=== PATIENT | female | born 1995 | race Caucasian/White ===

== ENCOUNTER → 2016-03-29 | Outpatient (REF) | payer OTHER ==
[~2016-03-29] MED LIST: FLUT11IN INH; NORT10CA2 PO; ORTHTAB6 PO; VITA100066 PO; XOPEAER INH; ZOFR4SOL PO
[2016-03-29 16:32] LABS: ALBUMIN 3.8 GM/DL (3.2-5.2); ALBUMIN/GLOBULIN RATIO 1.09 (1.00-1.93); ALKALINE PHOSPHATASE 37 U/L (45-117); ALT/SGPT 18 U/L (12-78); ANION GAP 11 MEQ/L (8-16); AST/SGOT 14 U/L (15-37); BILIRUBIN,TOTAL 0.2 MG/DL (0.2-1.0); BLOOD UREA NITROGEN 12 MG/DL (7-18); CALCIUM LEVEL 8.8 MG/DL (8.5-10.1); CARBON DIOXIDE LEVEL 25 MEQ/L (21-32); CHLORIDE LEVEL 102 MEQ/L (98-107); CREATININE FOR GFR 0.75 MG/DL (0.55-1.02); FERRITIN 6 NG/ML (8-252); FREE T4 0.88 NG/DL (0.78-1.33); GLUCOSE, FASTING 73 MG/DL (70-105); PERCENT SATURATION 29.8 % (13.2-37.4); POTASSIUM SERUM 4.3 MEQ/L (3.5-5.1); SODIUM LEVEL 138 MEQ/L (136-145); TOTAL IRON BINDING CAPACITY 510 UG/DL (250-450); TOTAL PROTEIN 7.3 GM/DL (6.4-8.2); VITAMIN B12 LEVEL 520 PG/ML (247-911)
[2016-03-29 17:24] LABS: BASO % 0.3 % (0.0-1.0); EOS # 0.1 K/mm3 (0.0-0.50); EOS % 0.9 % (0.0-3.0); LARGE UNSTAINED CELL # 0.2 K/mm3 (0.0-0.4); LARGE UNSTAINED CELL % 2.6 % (0.0-4.0); LYMPH # 1.8 K/mm3 (1.5-6.5); LYMPH % 30.3 % (24.0-44.0); MEAN CORPUSCULAR HGB CONC 34.3 g/dl (32.0-36.5); MEAN CORPUSCULAR VOLUME 90.2 fl (80.0-96.0); MONO # 0.4 K/mm3 (0.0-0.8); MONO % 6.7 % (0.0-5.0); NEUTROPHILS # 3.6 K/mm3 (1.8-7.7); NEUTROPHILS % 59.1 % (36.0-66.0); PLATELET COUNT, AUTOMATED 248 k/mm3 (150-450); RED CELL DISTRIBUTION WIDTH 12.4 % (11.5-14.5); WHITE BLOOD COUNT 6.1 K/mm3 (4.0-10.0)
== END ==
LOC: M LABDRAW1 15:44
DX: G25.89 Other specified extrapyramidal and movement disorders (principal); R53.83 Other fatigue

== ENCOUNTER → 2016-04-19 | Outpatient (REF) | payer OTHER ==
[2016-04-19 16:15] LABS: ALBUMIN 3.6 GM/DL (3.2-5.2); ALBUMIN/GLOBULIN RATIO 1.06 (1.00-1.93); ALKALINE PHOSPHATASE 42 U/L (45-117); ALT/SGPT 21 U/L (12-78); ANION GAP 7 MEQ/L (8-16); AST/SGOT 15 U/L (15-37); BILIRUBIN,TOTAL 0.2 MG/DL (0.2-1.0); BLOOD UREA NITROGEN 12 MG/DL (7-18); CALCIUM LEVEL 8.7 MG/DL (8.5-10.1); CARBON DIOXIDE LEVEL 28 MEQ/L (21-32); CHLORIDE LEVEL 105 MEQ/L (98-107); CREATININE FOR GFR 0.72 MG/DL (0.55-1.02); GLUCOSE, FASTING 73 MG/DL (70-105); POTASSIUM SERUM 4.1 MEQ/L (3.5-5.1); SODIUM LEVEL 140 MEQ/L (136-145)
== END ==
LOC: M LABDRAW1 15:38
PROVIDERS: ATTEND Psychiatry & Neurology Neurology
DX: G43.709 Chronic migraine without aura, not intractable, without status migrainosus (principal)

== ENCOUNTER → 2016-05-23 | Outpatient (REF) | payer OTHER ==
[2016-05-23 16:18] LABS: PERCENT SATURATION 26.9 % (13.2-37.4)
== END ==
LOC: M LABDRAW1 15:36
PROVIDERS: ATTEND Nurse Practitioner Family
DX: D64.9 Anemia, unspecified (principal)

== ENCOUNTER → 2016-08-15 | Outpatient (REF) | payer OTHER ==
[2016-08-15 13:13] LABS: PERCENT SATURATION 22.8 % (13.2-37.4)
== END ==
LOC: M LABDRAW1 12:21
PROVIDERS: ATTEND Nurse Practitioner Family
DX: G47.61 Periodic limb movement disorder (principal)

== ENCOUNTER → 2016-09-05 | Outpatient (REF) | payer OTHER ==
[2016-09-05 16:19] LABS: ALBUMIN 3.2 GM/DL (3.2-5.2); ALBUMIN/GLOBULIN RATIO 0.89 (1.00-1.93); ALKALINE PHOSPHATASE 31 U/L (45-117); ALT/SGPT 23 U/L (12-78); ANION GAP 5 MEQ/L (8-16); AST/SGOT 14 U/L (15-37); BILIRUBIN,TOTAL 0.2 MG/DL (0.2-1.0); BLOOD UREA NITROGEN 14 MG/DL (7-18); CALCIUM LEVEL 8.7 MG/DL (8.5-10.1); CARBON DIOXIDE LEVEL 31 MEQ/L (21-32); CHLORIDE LEVEL 104 MEQ/L (98-107); CREATININE FOR GFR 0.75 MG/DL (0.55-1.02); GLOMERULAR FILTRATION RATE > 60.0 (>60); GLUCOSE, FASTING 78 MG/DL (70-105); POTASSIUM SERUM 4.3 MEQ/L (3.5-5.1); SODIUM LEVEL 140 MEQ/L (136-145); TOTAL PROTEIN 6.8 GM/DL (6.4-8.2)
[2016-09-05 16:36] LABS: BASO % 0.2 % (0.0-1.0); EOS % 0.3 % (0.0-3.0); LARGE UNSTAINED CELL # 0.2 K/mm3 (0.0-0.4); LARGE UNSTAINED CELL % 1.6 % (0.0-4.0); LYMPH # 2.2 K/mm3 (1.5-6.5); MEAN CORPUSCULAR HEMOGLOBIN 32.4 pg (27.0-33.0); MEAN CORPUSCULAR HGB CONC 34.2 g/dl (32.0-36.5); MEAN CORPUSCULAR VOLUME 94.7 fl (80.0-96.0); MONO % 8.8 % (0.0-5.0); NEUTROPHILS # 8.1 K/mm3 (1.8-7.7); NEUTROPHILS % 70.1 % (36.0-66.0); PLATELET COUNT, AUTOMATED 227 k/mm3 (150-450); RED CELL DISTRIBUTION WIDTH 12.4 % (11.5-14.5); WHITE BLOOD COUNT 11.6 K/mm3 (4.0-10.0)
== END ==
LOC: M LABDRAW1 15:39
PROVIDERS: ATTEND Psychiatry & Neurology Neurology
DX: G43.909 Migraine, unspecified, not intractable, without status migrainosus (principal); M54.5 Low back pain; M54.2 Cervicalgia

== ENCOUNTER → 2016-12-26 | Outpatient (REF) | payer OTHER ==
[~2016-12-26] MED LIST changes: +LEVAINH INH; +ORTHTAB15 PO; -ORTHTAB6 PO; -XOPEAER INH
== END ==
LOC: M LAB REF 17:00
PROVIDERS: ATTEND Family Medicine
DX: Z11.3 Encounter for screening for infections with a predominantly sexual mode of transmission (principal)

== ENCOUNTER → 2017-01-25 | Outpatient (REF) | payer OTHER | LOC: M LABDRAW1 11:45 | PROVIDERS: ATTEND Internal Medicine Cardiovascular Disease | DX: I49.1 Atrial premature depolarization (principal) ==

== ENCOUNTER 2018-01-23 12:49 | Emergency (ER) | payer OTHER, MEDICAID, BC | END 2018-01-23 15:59 | disposition home or self-care (01) | LOC: M ED 12:49 | DX: O9A.211 Injury, poisoning and certain other consequences of external causes complicating pregnancy, first trimester (principal); T14.8XXA Other injury of unspecified body region, initial encounter; W10.8XXA Fall (on) (from) other stairs and steps, initial encounter; Y92.098 Other place in other non-institutional residence as the place of occurrence of the external cause; M54.9 Dorsalgia, unspecified; Z3A.08 8 weeks gestation of pregnancy; Z88.5 Allergy status to narcotic agent; Z79.899 Other long term (current) drug therapy | CPT/HCPCS: 76801 ==

== ENCOUNTER 2018-04-05 18:30 | Emergency (ER) | payer BC, OTHER, MEDICAID ==
[~2018-04-05] VITALS: Ht 144.8 cm; Wt 61.4 kg
[~2018-04-05 18:30] MED LIST changes: +ORTH1TAB9 PO; -ORTHTAB15 PO; +PRENCHW PO; +ZOLO50TA PO
[2018-04-05] MEDS ORDERED: ONDA4TAB5 (18:38)
--- NOTE | 2018-04-05 20:27 | REPVR ---
EXAM: US , Limited EXAM DATE/TIME: 04/05/2018 7:38 PM CLINICAL HISTORY: 22 years old, female; Injury or trauma; Fall; Initial encounter; Blunt trauma; Other: Lower back; Injury date: 04/05/18; Injury details: Patient fell on ice and hit back on running board; ; Additional info: Fall, cramping R/O placental injury, injury TECHNIQUE: Real-time ultrasound of the maternal uterus with image documentation. Exam focused on the clinical indication. COMPARISON: CT ABD PELVIS W/O FOL BY MELONIE 10/24/2014 6:37 PM FINDINGS: Note: Anatomical survey was neither requested nor performed on this examination. GESTATION: Gestation: Intrauterine gestation present. Heart rate: cardiac activity present. heart rate 144 beats per second. Presentation: Vertex presentation. Placenta: The placental edge is 2.9 cm from the internal cervical os. No placenta previa or placental abruption identified. MATERNAL: Cervix: Cervix length 4.0 cm. IMPRESSION: Limited ultrasound examination demonstrates a single live intrauterine gestation in vertex presentation. The heart rate is 144 beats per minute. The placenta is anterior without evidence of placenta previa or placenta abruption. Electronically signed by: Gus Huerta On 04/05/2018 20:27:35 PM
[2018-04-05 20:49] VITALS: BP 113/66
[2018-04-06] MEDS ORDERED: PRENCAP9 PO (17:21)
[2018-04-06] MEDS ORDERED: SERT50TA PO (17:21)
[2018-04-06] MEDS ORDERED: GUAI100S27 PO (18:23)
[2018-04-06] MEDS ORDERED: VENTAER INH (18:23)
== END 2018-04-05 21:13 | disposition home or self-care (01) ==
LOC: M ED 18:30
DX: O9A.212 Injury, poisoning and certain other consequences of external causes complicating pregnancy, second trimester (principal); S30.0XXA Contusion of lower back and pelvis, initial encounter; W00.9XXA Unspecified fall due to ice and snow, initial encounter; Y92.89 Other specified places as the place of occurrence of the external cause; Y93.89 Activity, other specified; O99.512 Diseases of the respiratory system complicating pregnancy, second trimester; J45.909 Unspecified asthma, uncomplicated; O99.89 Other specified diseases and conditions complicating pregnancy, childbirth and the puerperium; G43.A0 Cyclical vomiting, in migraine, not intractable; O99.342 Other mental disorders complicating pregnancy, second trimester; F41.9 Anxiety disorder, unspecified; Z3A.18 18 weeks gestation of pregnancy; Z88.5 Allergy status to narcotic agent; Z98.890 Other specified postprocedural states

== ENCOUNTER 2018-04-06 17:16 | Emergency (ER) | payer BC, OTHER, MEDICAID ==
[~2018-04-06] VITALS: Ht 144.8 cm; Wt 61.4 kg
[2018-04-06 17:16] VITALS: BP 137/74
[~2018-04-06 17:16] MED LIST changes: +ONDA4TAB5
[2018-04-06] MEDS ORDERED: PRENCAP9 PO (17:21)
[2018-04-06] MEDS ORDERED: SERT50TA PO (17:21)
[2018-04-06] MEDS ORDERED: guaiFENesin SYRUP 200 MG/10 ML UDC PO ONE (18:00)
[2018-04-06] MEDS ORDERED: GUAI100S27 PO (18:23)
[2018-04-06] MEDS ORDERED: VENTAER INH (18:23)
== END 2018-04-06 18:30 | disposition home or self-care (01) ==
LOC: M ED 17:16
DX: J06.9 Acute upper respiratory infection, unspecified (principal); J45.909 Unspecified asthma, uncomplicated; F41.9 Anxiety disorder, unspecified; F33.9 Major depressive disorder, recurrent, unspecified; Z79.899 Other long term (current) drug therapy; Z88.5 Allergy status to narcotic agent

== ENCOUNTER 2018-04-20 23:48 | Emergency (ER) | payer BC, OTHER, MEDICAID ==
[~2018-04-20] VITALS: Ht 144.8 cm; Wt 63.2 kg
[~2018-04-20 23:48] MED LIST changes: +GUAI100S27 PO; +PRENCAP9 PO; +SERT50TA PO; +VENTAER INH
[2018-04-21 01:00] VITALS: BP 112/69
[2018-04-21 01:07] LABS: BLOOD UREA NITROGEN 8 MG/DL (7-18); CALCIUM LEVEL 8.7 MG/DL (8.5-10.1); CARBON DIOXIDE LEVEL 24 MEQ/L (21-32); CHLORIDE LEVEL 104 MEQ/L (98-107); CREATININE FOR GFR 0.42 MG/DL (0.55-1.30); GLOMERULAR FILTRATION RATE > 60.0 (>60); GLUCOSE, FASTING 80 MG/DL (70-100); POTASSIUM SERUM 4.7 MEQ/L (3.5-5.1); SODIUM LEVEL 137 MEQ/L (136-145)
[2018-04-21 01:08] LABS: MAGNESIUM LEVEL 1.5 MG/DL (1.8-2.4)
[2018-04-21] MEDS ORDERED: MAGNESIUM OXIDE 400 MG TAB (MAG-OX) PO ONE (01:15)
--- NOTE | 2018-04-21 06:36 | ECGEPIP ---
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
== END 2018-04-21 01:25 | disposition home or self-care (01) ==
LOC: M ED 23:48
DX: O99.282 Endocrine, nutritional and metabolic diseases complicating pregnancy, second trimester (principal); O99.342 Other mental disorders complicating pregnancy, second trimester; O99.512 Diseases of the respiratory system complicating pregnancy, second trimester; Z3A.21 21 weeks gestation of pregnancy; Z79.899 Other long term (current) drug therapy; Z88.5 Allergy status to narcotic agent

== ENCOUNTER 2018-07-25 16:32 | Outpatient (CLI) | payer BC, OTHER, MEDICAID ==
[~2018-07-25] VITALS: Ht 146.1 cm; Wt 69.3 kg
[~2018-07-25 16:32] MED LIST changes: +GUAI100L6 PO; -GUAI100S27 PO; +SERT-141 PO; -SERT50TA PO
== END 2018-07-25 17:21 | disposition home or self-care (01) ==
LOC: M LDO 16:32
PROVIDERS: ATTEND Obstetrics & Gynecology
DX: O36.8130 Decreased fetal movements, third trimester, not applicable or unspecified (principal); Z3A.34 34 weeks gestation of pregnancy
CPT/HCPCS: 59025; G0378; G0463

== ENCOUNTER 2018-08-19 22:47 | Outpatient (CLI) | payer BC, MEDICAID ==
[~2018-08-19] VITALS: Ht 146.1 cm; Wt 70.9 kg
[2018-08-20 00:47] VITALS: BP 109/56
--- NOTE | 2018-08-20 02:19 | NUR ---
L&D Triage Note: S: 23yo G1 at 38wks presents with c/o contractions. Reports active movement. No vaginal bleeding or LOF PMHx: anxiety PSHx: spinal fusion OB: G1 Meds: PNV Allergy: hydrocodone Social Hx: no ETOH, drug or tobacco use during O: vss AF cat 1 tracing with irregular contractions on tocometer gen: well appearing cx: 1/50/-3, unchanged after 2 hrs A/P: 23yo G1 at 38wks with contractions,not active labor -Labor precautions and FKCs -f/u at OB appt Monday Janelle Lyman MD
== END 2018-08-20 02:15 | disposition home or self-care (01) ==
LOC: M LDO 22:47
PROVIDERS: ATTEND Obstetrics & Gynecology
DX: O47.1 False labor at or after 37 completed weeks of gestation (principal); Z3A.38 38 weeks gestation of pregnancy
CPT/HCPCS: 59025; G0378; G0463

== ENCOUNTER 2018-08-22 22:31 | Outpatient (CLI) | payer BC, MEDICAID ==
[2018-08-22 22:55] VITALS: BP 123/71
--- NOTE | 2018-08-23 07:01 | IPN ---
DATE: 08/23/2018 Beatrice is a 23-year-old 1, para 0 at 38-4/7 weeks gestation, estimated date of confinement (EDC) of 09/01/2018 based on last menstrual period and confirmed by first trimester ultrasound. She presents to labor and delivery today with report of irregular contractions since approximately 11:00 a.m. She denies vaginal bleeding or leakage of fluid. The fetus has been active. Her care was initiated at [facility] with a recent transfer of care to [facility]. Her first visit is scheduled this coming Monday. Her course has been unremarkable. OBSTETRIC HISTORY: Primigravida. OBSTETRIC LABS: A negative. Antibody screen negative. Varicella nonreactive. Rubella immune. Hep B surface antigen negative. Gonorrhea and chlamydia negative. Gestational diabetic screening normal at 95. Her Group B Streptococcus (GBS) is negative. PAST MEDICAL HISTORY: Anxiety. Depression. Exercise-induced asthma. Childhood varicella. She has a history of post concussion syndrome from a fall and follows with [facility] on a regular basis. SURGERIES: Lower lumbar spinal fusion. [place] tooth extraction. FAMILY HISTORY: Unknown as the patient is adopted. SOCIAL HISTORY: The patient is . Her is at bedside, supportive. She is a nonsmoker. Denies alcohol or drug use. No history of any sexually transmitted infections and denies history of abuse. ALLERGIES: 1. VICODIN. CURRENT MEDICATIONS: - vitamin - Zoloft 50 mg daily OBJECTIVE: Temperature 98.8, pulse 76, respirations 16, blood pressure is 123/71. The patient is alert and oriented times three. heart rate is 150 with moderate variability. Positive accelerations, no decelerations. Contractions are irregular, 4-7 minutes apart. Sterile vaginal exam: 1 cm dilated, 50% effaced, -2 station, very posterior, soft. No bloody show with the exam. ASSESSMENT: Intrauterine at 38-4/7 weeks. heart rate category 1, not in active labor. PLAN: Discharge the patient home. I did review signs and symptoms of active labor, kick counts and danger signs to report. I reviewed access to care. She is to keep her scheduled appointment on Monday. She would like to consider a social induction due to complaint of back pain related to term and a history of spinal fusion. The patient and her family have had their questions answered and agree with the plan of care.
== END 2018-08-23 00:01 | disposition home or self-care (01) ==
LOC: M LDO 22:31
PROVIDERS: ATTEND Advanced Practice Midwife
DX: O26.893 Other specified pregnancy related conditions, third trimester (principal); M54.9 Dorsalgia, unspecified; O47.1 False labor at or after 37 completed weeks of gestation; Z3A.38 38 weeks gestation of pregnancy
CPT/HCPCS: 59025; G0378; G0463

== ENCOUNTER → 2018-08-24 | Outpatient (REF) | payer OTHER, MEDICARE ==
[~2018-08-24] MED LIST changes: +COLA100C5 PO; +IBUP80TA PO; +PERCOCET PO
== END ==
LOC: M LABDRAW1 11:55
PROVIDERS: ATTEND Advanced Practice Midwife
DX: Z34.83 Encounter for supervision of other normal pregnancy, third trimester (principal)

== ENCOUNTER 2018-08-25 14:57 | Inpatient (IN) | payer BC, OTHER, MEDICAID ==
[2018-08-25] VITALS (13 sets, daily range): BP systolic 104–126; BP diastolic 56–73
[~2018-08-25] VITALS: Ht 146.1 cm; Wt 70.1 kg
[~2018-08-25 14:57] MED LIST changes: -COLA100C5 PO; -IBUP80TA PO; -PERCOCET PO
[2018-08-25] MEDS ORDERED: miSOPROStol 50 MCG 1/2 TAB (S0191) SL SCH (15:30)
[2018-08-25 16:22] LABS: HEMATOCRIT 38.6 % (36.0-47.0); HEMOGLOBIN 13.2 g/dl (12.0-15.5); MEAN CORPUSCULAR HEMOGLOBIN 30.9 pg (27.0-33.0); MEAN CORPUSCULAR HGB CONC 34.2 g/dl (32.0-36.5); MEAN CORPUSCULAR VOLUME 90.4 fl (80.0-96.0); PLATELET COUNT, AUTOMATED 208 10^3/uL (150-450); RED BLOOD COUNT 4.27 10^6/uL (4.00-5.40); WHITE BLOOD COUNT 10.7 10^3/uL (4.0-10.0)
--- NOTE | 2018-08-25 17:22 | HPE ---
DATE OF ADMISSION: 08/25/2018 A 23-year-old G1 female at 39-0/7 weeks gestation by last menstrual period (LMP) consistent with eight week ultrasound, estimated delivery date (PAGE) 09/01/2018, presents for labor induction. The reason for induction is worsening back pain from a preexisting lower back problem. She has occasional contractions. Denies vaginal bleeding. COURSE: Patient's early care was with [facility] (OB). She transferred to [facility] at 38 weeks gestation. She has had no complications other than worsening back pain. MEDICAL HISTORY: 1. Anxiety/depression. 2. Exercised induced asthma. 3. Chronic back pain following a trauma. SURGICAL HISTORY: 1. Lower lumbar spinal fusion 2016. 2. [place] teeth removal 2014. ALLERGIES: HYDROCODONE. SOCIAL HISTORY: The patient is . She denies cigarettes, alcohol or drug use. She lives in [place]. FAMILY HISTORY: Noncontributory. PHYSICAL EXAMINATION: Blood pressure 116/70. She is in no apparent distress. HEAD AND NECK EXAM: Normal. LUNGS: Clear. HEART: Regular rate and rhythm. ABDOMEN: Nontender. Gravid. heart tones category 1. Contractions regular, sparse. EXTREMITIES: Nontender. CERVIX: 1 cm, 50%, -2 per exam on 08/24/2018. LABORATORY DATA: Blood type A positive, rubella immune, rapid plasma reagin (RPR) nonreactive, hepatitis B and C negative, group B Streptococcus (GBS) negative on 08/07/2018. ASSESSMENT: A 23-year-old G1 at 39-0/7 weeks gestation presents for labor induction. PLAN: Patient is admitted on 08/25/2018. Risks of induction were discussed.
[2018-08-25] MEDS ORDERED: OXYTOCIN 30 UNITS IN 0.9% NaCl 500ML IV BAG (J2590) As Ordered ONE (19:56)
[2018-08-25] MEDS ORDERED: OXYTOCIN DRIP 30 UNITS in APPROPRIATE DILUENT 1 EA IV SCH (20:00)
[2018-08-25] MEDS: LR 1,000 ML IV SCH (20:06)
[2018-08-26] VITALS (61 sets, daily range): BP systolic 96–151; BP diastolic 52–92
[2018-08-26] MEDS: LR 1,000 ML IV SCH ×2 (02:30→08:59)
[2018-08-26] MEDS ORDERED: FENTANYL 2MCG/ML ROPIVACAINE 0.2% IN 0.9% NACL 100ML IVBAG As Ordered ONE (03:49)
[2018-08-26] MEDS ORDERED: diphenhydrAMINE INJ 50MG/ML VIAL (J1200) IV PRN ×2 (04:20→20:35)
[2018-08-26] MEDS ORDERED: REFRIGERATOR IV KEYS XX PRN (04:20)
[2018-08-26] MEDS ORDERED: EPIDURAL COMMENT XX SCH (04:20)
[2018-08-26] MEDS ORDERED: NALOXONE INJ 0.4 MG/1 ML VIAL (J2310) IV PRN ×3 (04:20→20:35)
[2018-08-26] MEDS ORDERED: LACTATED RINGER'S 1000 ML IV PRN (04:20)
[2018-08-26] MEDS ORDERED: ePHEDrine SULFATE 25 MG/5 ML(5MG/ML) SYRINGE IV PRN (04:20)
[2018-08-26] MEDS ORDERED: EPIDURAL/PCA KEYS XX PRN (04:20)
[2018-08-26] MEDS ORDERED: FENTANYL/ROPIVACAINE/NACL BAG 100 ML EPIDURAL SCH (04:20)
[2018-08-26] MEDS ORDERED: ONDANSETRON 4MG/2ML VIAL (J2405) As Ordered ONE ×2 (05:08→20:30)
[2018-08-26] MEDS: ONDANSETRON 4MG/2ML VIAL (J2405) IV PRN ×2 (05:11→12:18)
[2018-08-26] MEDS ORDERED: ceFAZolin 2 GM/D5W 50 ML IV BAG (J0690 PER 500MG) As Ordered ONE (19:47)
[2018-08-26] MEDS ORDERED: BICITRA 30ML SOLN UDC As Ordered ONE (19:47)
[2018-08-26] MEDS ORDERED: MAG SULF 1GM/100ML (MAG RUN) 1 GM in APPROPRIATE DILUENT 1 EA IV ONE (20:00)
[2018-08-26] MEDS ORDERED: OXYTOCIN INJ 10 UNITS/ML VIAL (J2590) As Ordered ONE ×2 (20:12→20:24)
[2018-08-26] MEDS ORDERED: LIDOCAINE 2% W/EPIN INJ 20ML **PRES FREE As Ordered ONE (20:12)
[2018-08-26] MEDS ORDERED: MORPHINE PRES-FREE INJ 10 MG/10 ML VIAL (J2274) As Ordered ONE (20:27)
[2018-08-26] MEDS ORDERED: NALBUPHINE HCL 10 MG/ML AMP (J2300) IV PRN ×2 (20:35→21:00)
[2018-08-26] MEDS ORDERED: METOCLOPRAMIDE INJ 10MG/2ML VIAL (J2765) IV PRN (20:35)
[2018-08-26] MEDS ORDERED: ONDANSETRON 4MG/2ML VIAL (J2405) IV PRN ×3 (20:35→21:30)
[2018-08-26] MEDS ORDERED: METOCLOPRAMIDE INJ 10MG/2ML VIAL (J2765) As Ordered ONE (20:36)
[2018-08-26] MEDS ORDERED: MEPERIDINE 50 MG/ML 1ML VIAL (J2175) As Ordered ONE (20:41)
[2018-08-26] MEDS ORDERED: PERCOCET 5MG/325MG TAB PO PRN ×3 (21:00→21:30)
[2018-08-26] MEDS ORDERED: fentaNYL 100 MCG/2 ML INJECTION (J3010) IV PRN (21:00)
[2018-08-26] MEDS ORDERED: KETOROLAC 30 MG/ML VIAL (J1885) IV PRN (21:00)
[2018-08-26] MEDS ORDERED: MEPERIDINE INJ 25 MG/ML VIAL (J2175) IV PRN (21:00)
[2018-08-26] MEDS ORDERED: LR 1,000 ML IV SCH (21:00)
[2018-08-26] MEDS ORDERED: OXYTOCIN DRIP 30 UNITS in APPROPRIATE DILUENT 1 EA IV SCH (21:30)
[2018-08-26] MEDS ORDERED: MEASLES,MUMPS,RUBELLA VACCINE INJ (MMR-II) (90707) SC SCH (21:30)
[2018-08-26] MEDS ORDERED: miSOPROStol 200 MCG TAB (S0191) PR ONE (21:30)
[2018-08-26] MEDS ORDERED: DOCUSATE SODIUM 100 MG CAP PO PRN (21:30)
[2018-08-26] MEDS ORDERED: RHOGAM 300 MCG (1500 IU) INJ (J2790) IM SCH (21:30)
[2018-08-26] MEDS ORDERED: OXYTOCIN 30 UNITS IN 0.9% NaCl 500ML IV BAG (J2590) As Ordered ONE (22:03)
[2018-08-26] MEDS: KETOROLAC 30 MG/ML VIAL (J1885) IV SCH (23:37)
[2018-08-27] VITALS (8 sets, daily range): BP systolic 111–127; BP diastolic 52–68
[2018-08-27] MEDS: KETOROLAC 30 MG/ML VIAL (J1885) IV SCH ×3 (05:21→17:05)
[2018-08-27] MEDS: LR 1,000 ML IV SCH (05:30)
[2018-08-27 06:23] LABS: HEMATOCRIT 30.2 % (36.0-47.0); MEAN CORPUSCULAR HEMOGLOBIN 30.4 pg (27.0-33.0); MEAN CORPUSCULAR HGB CONC 33.8 g/dl (32.0-36.5); MEAN CORPUSCULAR VOLUME 90.1 fl (80.0-96.0); PLATELET COUNT, AUTOMATED 164 10^3/uL (150-450); RED BLOOD COUNT 3.35 10^6/uL (4.00-5.40); WHITE BLOOD COUNT 18.6 10^3/uL (4.0-10.0)
[2018-08-27 06:32] LABS: HEMOGLOBIN 10.2 g/dl (12.0-15.5)
[2018-08-27] MEDS: PRENATAL VITAMINS CHEWABLE TABLET PO SCH (08:18)
[2018-08-27] MEDS: SERTRALINE HCL 25 MG TABLET PO SCH (11:27)
--- NOTE | 2018-08-27 12:49 | RO ---
DATE OF PROCEDURE: 08/26/2018 PREOPERATIVE DIAGNOSIS: 39 weeks, arrest of dilation. POSTOPERATIVE DIAGNOSIS: 39 weeks, arrest of dilation. PROCEDURE: Primary low transverse section. SURGEON: Federico Richter MD CIGAR BINDER: Jonathan Ayoub MD ANESTHESIA: Epidural. ESTIMATED BLOOD LOSS: 800 mL. URINE OUTPUT: 150 mL. IV FLUIDS: 900 mL of Lactated Ringer's. FINDINGS: 3320 gram 7 pound 5 ounce male . scores 8 and 8, occiput posterior position with asynclitism present. Normal uterus, fallopian tubes and ovaries. OPERATIVE SUMMARY: Patient taken to the operating room where epidural anesthesia was adequate. She was prepped and draped in a sterile fashion, placed in the supine position. A Bolton catheter was already in place. A Pfannenstiel skin incision was made with a scalpel and carried through to the fascia, the fascia was nicked and extended. Peritoneal cavity was entered. A bladder flap was created. A curvilinear incision was made in the lower uterine segment until clear fluid was noted. This was extended manually. The was delivered in the vertex position without difficulty. The cord was doubly clamped and cut. The was handed off to the awaiting nurses. Placenta was expressed. The uterus was exteriorized and cleared of all clots and debris. The uterine incision was closed with #0 Vicryl in a running locked fashion. A second imbricating layer of #0 Vicryl was placed. The uterus was placed back in the abdominal cavity. The peritoneum was closed with #2-0 Vicryl in a running fashion. The fascia was closed with #0 Vicryl. The deep layer was irrigated and closed with #2-0 chromic. Skin was close with #4-0 Monocryl subcuticular sutures. Sponge, instrument and needle counts were correct. Jonathan Ayoub MD assisted throughout the procedure. He was integral to the procedure. He helped create all layers of the incision was the abdomen and uterus. He helped with expulsion of the fetus and closure of all layers.
[2018-08-27] MEDS: ACETAMINOPHEN 500 MG TAB PO PRN (20:27)
[2018-08-28] MEDS: IBUPROFEN 800 MG TAB PO SCH ×2 (01:24→09:16)
[2018-08-28 02:59] VITALS: BP 151/81
[2018-08-28] MEDS: ACETAMINOPHEN 500 MG TAB PO PRN ×2 (04:58→10:02)
[2018-08-28 05:30] VITALS: BP 114/62
[2018-08-28] MEDS: PRENATAL VITAMINS CHEWABLE TABLET PO SCH (09:00)
[2018-08-28] MEDS: SERTRALINE HCL 25 MG TABLET PO SCH (09:00)
[2018-08-28 10:00] VITALS: BP 122/58
--- NOTE | 2018-08-28 12:16 | NUR ---
Discharge Summary Date of admission: 08/25/2018 Date of discharge: 08/28/2018 Admitting diagnosis: 39 completed weeks gestation, planned elective induction of labor Discharge diagnosis: Status post primary low transverse section. Single, liveborn delivered via . Indication: arrest of dilation. Discharge Summary: 23 year-old G1 now P1. She was admitted on 08/25/18 at 39+0 weeks EGA for a planned elective IOL. Her labor course was complicated by arrest of dilation. This prompted an unscheduled delivery under regional anesthesia on 08/26/18. The delivery was uncomplicated. The patient's postoperative courses was uncomplicated as well. By postoperative day #2, the patient was meeting all discharge criteria. Her pain was well controlled on oral pain meds. She was ambulating without assistance, voiding spontaneously, tolerating a regular diet, and her lochia/bleeding was minimal. Physical exam on date of discharge: Vitals: normotensive, normal HR, afebrile Heart: regular rate and rhythm with no murmurs, gallops, rubs. Lungs: clear to auscultation bilaterally, no wheezes, crackles, rales, ronchi Abd: soft, non-distended, appropriately tender. Normoactive bowel sounds. Incision: clean, dry, intact without surrounding erythema or induration. Ext: non-edematous, non-tender, negative Lorenzo's sign bilaterally Assessment/Plan: 23 year-old G1 now P1 status post primary low transverse delivery on 08/26/18 now postoperative day #2. Hemodynamically stable, afebrile, with good pain control. Meeting all discharge criteria. -Routine infectious, fever, pain, and bleeding precautions reviewed -Surgical wound/incisional care / precautions reviewed. -Discharge medications: Percocet, Motrin, Colace. -Outpatient follow up in 1-2 weeks for a routine incision / postoperative check. Dr. Konstantin Ross, DO, FACOG
[2018-08-28] MEDS ORDERED: COLA100C5 PO (12:19)
[2018-08-28] MEDS ORDERED: IBUP80TA PO (12:19)
[2018-08-28] MEDS ORDERED: PERCOCET PO (12:19)
== END 2018-08-28 14:40 | disposition home or self-care (01) | DRG 540 ==
LOC: M LDI 14:57 → M OBS 08-26 23:09
PROVIDERS: ADMIT Specialist; ATTEND Specialist
PROC: 3E0P7GC Introduction of Other Therapeutic Substance into Female Reproductive, Via Natural or Artificial Opening (ICD-10-PCS; 2018-08-25)
PROC: 10D00Z1 Extraction of Products of Conception, Low, Open Approach (ICD-10-PCS; principal; 2018-08-26 20:00)
DX: O26.893 Other specified pregnancy related conditions, third trimester (principal); M54.5 Low back pain; Z3A.39 39 weeks gestation of pregnancy; Z98.1 Arthrodesis status; O62.0 Primary inadequate contractions; O64.0XX0 Obstructed labor due to incomplete rotation of fetal head, not applicable or unspecified; Z37.0 Single live birth

== ENCOUNTER 2018-08-29 17:42 | Emergency (ER) | payer BC, OTHER, MEDICAID ==
[~2018-08-29 17:42] MED LIST changes: +COLA100C5 PO; +IBUP80TA PO; +PERCOCET PO
[2018-08-29] MEDS ORDERED: NS 1,000 ML IV ONE (18:30)
[2018-08-29] MEDS ORDERED: PROMETHAZINE INJ 25 MG/ML VIAL (J2550) IV ONE (18:45)
[2018-08-29] MEDS ORDERED: diphenhydrAMINE INJ 50MG/ML VIAL (J1200) IV ONE (18:45)
[2018-08-29] MEDS ORDERED: ACETAMINOPHEN 500 MG TAB PO ONE (18:45)
[2018-08-29 19:06] LABS: BASO % 0.3 % (0.0-1.0); EOS # 0.2 10^3/uL (0.0-0.50); EOS % 1.7 % (0.0-3.0); HEMATOCRIT 32.2 % (36.0-47.0); HEMOGLOBIN 10.8 g/dl (12.0-15.5); LYMPH # 2.7 10^3/uL (1.5-6.5); LYMPH % 19.8 % (24.0-44.0); MEAN CORPUSCULAR HEMOGLOBIN 30.8 pg (27.0-33.0); MEAN CORPUSCULAR HGB CONC 33.5 g/dl (32.0-36.5); MEAN CORPUSCULAR VOLUME 91.7 fl (80.0-96.0); MONO # 0.8 10^3/uL (0.0-0.8); MONO % 5.9 % (0.0-5.0); NEUTROPHILS # 9.7 10^3/uL (1.8-7.7); NEUTROPHILS % 70.5 % (36.0-66.0); PLATELET COUNT, AUTOMATED 267 10^3/uL (150-450); RED BLOOD COUNT 3.51 10^6/uL (4.00-5.40); WHITE BLOOD COUNT 13.8 10^3/uL (4.0-10.0)
--- NOTE | 2018-08-29 19:24 | REPVR ---
EXAM: CT Head Without Contrast EXAM DATE/TIME: 08/29/2018 6:40 PM CLINICAL HISTORY: 23 years old, female; Pain; Headache not specified TECHNIQUE: Imaging protocol: Axial computed tomography images of the head without contrast. Radiation optimization: All CT scans at this facility use at least one of these dose optimization techniques: automated exposure control; mA and/or kV adjustment per patient size (includes targeted exams where dose is matched to clinical indication); or iterative reconstruction. COMPARISON: CT Head without contrast 01/11/2013 11:32 PM FINDINGS: Brain: There is no evidence of intracranial bleed. Ventricles: Normal. No ventriculomegaly. Bones/joints: Unremarkable. No acute fracture. Sinuses: Clear paranasal sinuses. Mastoid air cells: Clear mastoid air cells. Soft tissues: Unremarkable. IMPRESSION: Normal appearing CT scan of the brain. Electronically signed by: Mauricio Negron On 08/29/2018 19:24:48 PM
[2018-08-29 19:31] LABS: ALBUMIN 2.4 GM/DL (3.2-5.2); ALT/SGPT 27 U/L (12-78); BILIRUBIN,DIRECT < 0.1 MG/DL (0.0-0.2); BILIRUBIN,TOTAL 0.2 MG/DL (0.2-1.0); BLOOD UREA NITROGEN 7 MG/DL (7-18); CARBON DIOXIDE LEVEL 26 MEQ/L (21-32); CHLORIDE LEVEL 107 MEQ/L (98-107); CREATININE FOR GFR 0.61 MG/DL (0.55-1.30); GLOMERULAR FILTRATION RATE > 60.0 (>60); GLUCOSE, FASTING 85 MG/DL (70-100); LIPASE 188 U/L (73-393); POTASSIUM SERUM 3.5 MEQ/L (3.5-5.1); SODIUM LEVEL 143 MEQ/L (136-145); TOTAL PROTEIN 6.5 GM/DL (6.4-8.2)
[2018-08-29 20:45] LABS: APPEARANCE, URINE HAZY (CLEAR); BACTERIA, URINE AUTO 1+ (NEGATIVE); BILIRUBIN, URINE AUTO NEGATIVE (NEGATIVE); BLOOD, URINE BLOOD 3+ (NEGATIVE); COLOR, URINE STRAW (YELLOW); GLUCOSE, URINE (UA) AUTO NEGATIVE (NEGATIVE); KETONE, URINE AUTO NEGATIVE (NEGATIVE); LEUKOCYTE ESTERASE, URINE AUTO 2+ (NEGATIVE); NITRITE, URINE AUTO NEGATIVE (NEGATIVE); PROTEIN, URINE AUTO NEGATIVE (NEGATIVE); RBC, URINE AUTO 14 /HPF (0-3); RENAL EPITHELIAL CELLS 1 /HPF; SPECIFIC GRAVITY URINE AUTO 1.003 (1.002-1.035); SQUAMOUS EPITHELIAL CELL UR AU 12 /HPF (0-6); TRANSITIONAL EPITHELIAL AUTO 1 /HPF; UROBILINOGEN, URINE AUTO 0.2 mg/dL (0.0-2.0); WBC, URINE AUTO 21 /HPF (0-3)
--- NOTE | 2018-08-29 21:29 | REPVR ---
EXAM: XR Chest, 2 Views EXAM DATE/TIME: 08/29/2018 8:09 PM CLINICAL HISTORY: 23 years old, female; Shortness of breath; Additional info: SOB TECHNIQUE: Imaging protocol: XR of the chest, 2 views. COMPARISON: CR Chest, 2 view PA, Lat 04/25/2012 10:09 AM FINDINGS: Lungs: There is atelectasis and infiltrate at the left lung base. Pleural space: There is a small left pleural effusion. There is no evidence of pneumothorax. Heart/Mediastinum: There is enlargement of the heart since the examination 2012. Bones/joints: Unremarkable. IMPRESSION: 1. There is enlargement of the heart since 2012. 2. Small left pleural effusion. 3. Mild atelectasis infiltrate at the left lower lobe. Electronically signed by: Mauricio Negron On 08/29/2018 21:29:44 PM
[2018-08-29 22:04] VITALS: BP 110/84
--- NOTE | 2018-08-30 10:03 | ED PDOC ---
Post-Departure Follow-Up cxr and chart reviewed. D/w Dr Richter - recommends ED eval - cardiac work up/ec ho/he will see in ED. Sadia Sandoval RN to call pt and ask pt to return to ED. Dr Emery aware of plan Augustine Vargas MD Aug 30, 2018 10:03
--- NOTE | 2018-08-30 10:27 | ECGEPIP ---
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
[2018-08-30] MEDS ORDERED: ONDA4TAB5 (12:30)
== END 2018-08-29 22:33 | disposition home or self-care (01) ==
LOC: M ED 17:42
DX: R51 Headache (principal); J45.909 Unspecified asthma, uncomplicated; Z79.899 Other long term (current) drug therapy; Z88.5 Allergy status to narcotic agent
CPT/HCPCS: 36415; 70450; 71046; 80048; 80076; 81001; 83690; 85025; 87086; 93005; 93041; 96361; 96374; 96375; 99285; J1200

== ENCOUNTER 2018-08-30 12:22 | Emergency (ER) | payer BC, OTHER, MEDICAID ==
[~2018-08-30] VITALS: Ht 147.3 cm; Wt 69.8 kg
[2018-08-30] MEDS ORDERED: ONDA4TAB5 (12:30)
[2018-08-30 13:05] LABS: BASO # 0.1 10^3/uL (0.0-0.2); BASO % 0.4 % (0.0-1.0); EOS # 0.2 10^3/uL (0.0-0.50); HEMATOCRIT 31.4 % (36.0-47.0); HEMOGLOBIN 10.7 g/dl (12.0-15.5); LYMPH # 1.5 10^3/uL (1.5-6.5); LYMPH % 13.3 % (24.0-44.0); MEAN CORPUSCULAR HEMOGLOBIN 31.8 pg (27.0-33.0); MEAN CORPUSCULAR HGB CONC 34.1 g/dl (32.0-36.5); MEAN CORPUSCULAR VOLUME 93.5 fl (80.0-96.0); MONO # 0.5 10^3/uL (0.0-0.8); MONO % 4.6 % (0.0-5.0); NEUTROPHILS # 8.7 10^3/uL (1.8-7.7); NEUTROPHILS % 78.1 % (36.0-66.0); PLATELET COUNT, AUTOMATED 262 10^3/uL (150-450); RED BLOOD COUNT 3.36 10^6/uL (4.00-5.40); WHITE BLOOD COUNT 11.1 10^3/uL (4.0-10.0)
[2018-08-30 13:23] LABS: INR 0.94; PROTHROMBIN TIME 12.3 SECONDS (11.8-14.0)
[2018-08-30 13:24] LABS: PARTIAL THROMBOPLASTIN TIME 30.3 SECONDS (25.0-38.4)
[2018-08-30 13:32] LABS: BLOOD UREA NITROGEN 7 MG/DL (7-18); CALCIUM LEVEL 8.2 MG/DL (8.5-10.1); CARBON DIOXIDE LEVEL 24 MEQ/L (21-32); CHLORIDE LEVEL 109 MEQ/L (98-107); CPK CREATINE PHOSPHOKINASE 113 U/L (26-192); CREATININE FOR GFR 0.55 MG/DL (0.55-1.30); GLOMERULAR FILTRATION RATE > 60.0 (>60); GLUCOSE, FASTING 76 MG/DL (70-100); MAGNESIUM LEVEL 1.7 MG/DL (1.8-2.4); MB/CK RELATIVE INDEX 0.88 (< OR =4); NT-PRO BNP 1057 PG/ML (<125); POTASSIUM SERUM 3.8 MEQ/L (3.5-5.1); SODIUM LEVEL 142 MEQ/L (136-145); TROPONIN I < 0.02 NG/ML (< 0.10)
[2018-08-30 14:00] VITALS: BP 149/78
--- NOTE | 2018-08-30 14:13 | REP ---
Chest x-ray: Two views. History: Cardiomegaly. Post delivery. Comparison study: August 29, 2018. Findings: Mild to moderate cardiomegaly is again observed essentially unchanged. Cardiothoracic ratio measures 57.5% on the frontal radiograph. There is blunting of the left lateral pleural angle suggesting a small quantity of left pleural fluid. Posterior pleural angles are sharp. Pulmonary vasculature is not increased. No pulmonary edema is seen. No infiltrate is noted. Impression: Persistent cardiomegaly. Small quantity of left pleural fluid suspected. No change from comparison study. Electronically Signed by Damon Guerin MD 08/30/2018 02:06 P
--- NOTE | 2018-08-30 17:02 | ECHO ---
DATE OF PROCEDURE: 08/30/2018 REFERRING PHYSICIAN: JACQUELIN Edge INDICATION: Cardiomegaly. HEIGHT: 147 cm WEIGHT: 70 kg. DIMENSIONS IVS: 1.0 LV: 4.9 LVPW: 1.1 LA: 4.2 Aorta: 2.8 Mitral E wave velocity: 118 A wave: 104. E prime septal: 9.8 E prime lateral: 16.1 IVC: 2.3 FINDINGS The study is of good technical quality. The patient is in sinus rhythm. Left ventricle is of normal size and systolic function. Estimated left ventricular ejection fraction (LVEF) 55-60% (computer calculated LVEF 56%). Right ventricle also appears normal size and systolic function. Both atria appear normal. All four cardiac valves were reasonably well seen and appear normal. No significant pericardial effusion is noted. Inferior vena cava is mildly dilated, but has appropriate collapse with respiration. Aortic root, aortic arch and abdominal aorta appear normal. Doppler interrogation of aortic valve reveals no stenosis or insufficiency. There is mild mitral insufficiency and mild tricuspid insufficiency. Calculated pulmonary artery pressure is likely in 30s corresponding to mild pulmonary hypertension. Pulmonic valve exhibits mild insufficiency. Mitral inflow pattern and tissue Doppler imaging of mitral annulus reveal normal diastolic function of left ventricle. CONCLUSIONS 1. Study is of good technical quality. 2. Normal LV size, systolic and diastolic function. 3. No significant valvular disease. 4. Possibly mildly elevated central venous pressure and mild pulmonary hypertension. 5. No pericardial effusion. 6. In some views, there is suspicion for left pleural effusion. COMMENTS: Subacute bacterial endocarditis (SBE) prophylaxis is not recommended. The study is not consistent with cardiomyopathy. Results of the study were communicated with Dr. Emery in the emergency room. DAVID
--- NOTE | 2018-08-30 21:47 | ECGEPIP ---
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
== END 2018-08-30 17:45 | disposition home or self-care (01) ==
LOC: M ED 12:22
DX: O99.89 Other specified diseases and conditions complicating pregnancy, childbirth and the puerperium (principal); M54.9 Dorsalgia, unspecified; J90 Pleural effusion, not elsewhere classified; J45.909 Unspecified asthma, uncomplicated; F41.9 Anxiety disorder, unspecified; F32.9 Major depressive disorder, single episode, unspecified; Z79.899 Other long term (current) drug therapy; Z88.5 Allergy status to narcotic agent

== ENCOUNTER → 2019-05-24 | Outpatient (REF) | payer BC, OTHER ==
[~2019-05-24] MED LIST changes: +ONDA-83; -ONDA4TAB5
[2019-05-24 15:45] LABS: HEMATOCRIT 43.5 % (36.0-47.0); HEMOGLOBIN 14.3 g/dl (12.0-15.5); MEAN CORPUSCULAR HEMOGLOBIN 29.9 pg (27.0-33.0); MEAN CORPUSCULAR HGB CONC 32.9 g/dl (32.0-36.5); MEAN CORPUSCULAR VOLUME 90.8 fl (80.0-96.0); PLATELET COUNT, AUTOMATED 272 10^3/uL (150-450); RED BLOOD COUNT 4.79 10^6/uL (4.00-5.40); WHITE BLOOD COUNT 7.2 10^3/uL (4.0-10.0)
[2019-05-24 16:41] LABS: HEPATITIS B SURFACE ANTIGEN NEGATIVE (NEGATIVE); HEPATITIS C VIRUS ABY INDEX < 0.0 INDEX (<0.8); HIV 1&2 SCREEN CENTAUR NEGATIVE (NEGATIVE); RUBELLA IgG QUALITATIVE IMMUNE (IMMUNE)
[2019-05-24 17:16] LABS: CHLAMYDIA DNA AMPLIFICATION NEGATIVE (NEGATIVE); GC DNA AMPLIFICATION NEGATIVE (NEGATIVE)
== END ==
LOC: M LABDRAW1 12:33
PROVIDERS: ATTEND Advanced Practice Midwife
DX: O34.211 Maternal care for low transverse scar from previous cesarean delivery (principal)

== ENCOUNTER → 2019-06-21 | Outpatient (CLI) | payer BC, OTHER | LOC: M PLALAB 09:40 | PROVIDERS: ATTEND Advanced Practice Midwife | DX: Z34.81 Encounter for supervision of other normal pregnancy, first trimester (principal); Z3A.00 Weeks of gestation of pregnancy not specified ==

== ENCOUNTER → 2019-06-21 | Outpatient (CLI) | payer BC, OTHER ==
--- NOTE | 2019-06-21 09:45 | REP ---
OB ULTRASOUND: Real-time sonographic evaluation of the gravid uterus is performed. There is a single living intrauterine gestation. The estimated gestational age is 11 weeks 1 day based on crown-rump length of 43 mm, EDC 01/09/2020. Cervix is closed and measures approximately 3.2 cm in length. heart rate 161 beats per minute. No subchorionic hemorrhage is seen. Placenta is posterior. Cystic structure right ovary measures 2.1 x 1.8 x 1.6 cm. Cystic structure left ovary measures 2.0 x 1.6 x 1.9 cm. Recommend followup anatomy screening ultrasound at 19 to 20 weeks gestational age.
== END ==
LOC: M WHC 07:31
PROVIDERS: ATTEND Advanced Practice Midwife
DX: O34.211 Maternal care for low transverse scar from previous cesarean delivery (principal); Z3A.11 11 weeks gestation of pregnancy

== ENCOUNTER → 2019-08-16 | Outpatient (CLI) | payer BC, OTHER ==
--- NOTE | 2019-08-17 08:04 | REP ---
REASON: anatomy. PRIORS: None. Multiple ultrasonographic images of the gravid uterus show a single living intrauterine gestation in variable positions. Doppler interrogation of the heart shows a heart rate of 133 beats per minute. The placenta is posterior and not low-lying. The cervix measures 3.7 cm in length and is closed. The subjective amniotic fluid volume is within normal limits. Evaluation of the maternal adnexal spaces showed no abnormalities. BPD 4.5 cm = 19 weeks 3 days HC 16.5 cm = 19 weeks 2 days AC 15.1 cm = 20 weeks 3 days FL 2.9 cm = 18 weeks 6 days The estimated weight is 304 grams, which is at the 63rd percentile for a 74-likd-9-day gestational age. anatomic structures seen as unremarkable are as follows: Thalami, calvum septum pellucidum, cerebellum, cisterna magna, upper lip, four-chamber heart, right and left ventricular outflow tract, stomach, cord insertion, three-vessel umbilical cord, kidneys, urinary bladder, spine, and upper extremities. The lower extremities were poorly visualized. IMPRESSION: Single living intrauterine gestation as described above with an estimated gestational age of 19 weeks 6 days via composite criteria. The PAGE on the worksheet is 01/09/2020, however, it does not indicate on the worksheet whether or not the PAGE is based on today's composite criteria or the prior ultrasound. No anomalies were detected.
== END ==
LOC: M WHC 08:49
PROVIDERS: ATTEND Advanced Practice Midwife
DX: O34.219 Maternal care for unspecified type scar from previous cesarean delivery (principal); Z36.89 Encounter for other specified antenatal screening; Z3A.19 19 weeks gestation of pregnancy

== ENCOUNTER → 2019-09-11 | Outpatient (CLI) | payer BC, OTHER ==
--- NOTE | 2019-09-11 09:46 | REP ---
OBSTETRIC SONOGRAPHY: HISTORY: Supervision of followup anatomy. Comparison sonography August 16, 2019. SONOGRAPHIC FINDINGS: Scanning through the gravid uterus demonstrates a viable single intrauterine gestation in a breech lie. motion is observed and heart rate is recorded at 138 beats per minute. A posterior grade 0 placenta is seen without evidence of previa or abruption. Amniotic fluid is subjectively normal. Closed cervical length is 3.6 cm measured transabdominally. No extrauterine abnormality is observed. There has been appropriate interval growth. The lower extremities were not adequately seen previously. They are seen today and felt to be unremarkable. Biometry Chart: BPD 5.7 cm = 23 weeks 2 days. HC 20.9 cm = 23 weeks 0 days AC 18.0 cm = 22 weeks 6 days FL 4.0 cm = 22 weeks 6 days HL 3.7 cm = 23 weeks 0 days HC/AC ratio normal 1.16 Cephalic index normal 0.76. Estimated weight 546 grams, 1 pound 3 ounces, 45th percentile for 22 weeks 6 days. IMPRESSION: Viable single intrauterine gestation at 22 weeks 5 days by today's composite sonographic criteria. Expected gestational age estimate based on prior sonography is 22 weeks 6 days. PAGE by prior sonography January 09, 2020. In conjunction with the previous study, anatomic survey is felt to be complete.
== END ==
LOC: M WHC 08:23
PROVIDERS: ATTEND Specialist
DX: O32.1XX0 Maternal care for breech presentation, not applicable or unspecified (principal); Z36.2 Encounter for other antenatal screening follow-up; Z3A.22 22 weeks gestation of pregnancy

== ENCOUNTER → 2019-10-02 | Outpatient (REF) | payer OTHER ==
[2019-10-02 15:10] LABS: HEMATOCRIT 39.6 % (36.0-47.0); HEMOGLOBIN 13.1 g/dl (12.0-15.5); MEAN CORPUSCULAR HEMOGLOBIN 31.2 pg (27.0-33.0); MEAN CORPUSCULAR HGB CONC 33.1 g/dl (32.0-36.5); MEAN CORPUSCULAR VOLUME 94.3 fl (80.0-96.0); PLATELET COUNT, AUTOMATED 269 10^3/uL (150-450); WHITE BLOOD COUNT 11.5 10^3/uL (4.0-10.0)
== END ==
LOC: M PLALAB 11:24
PROVIDERS: ATTEND Advanced Practice Midwife
DX: O34.219 Maternal care for unspecified type scar from previous cesarean delivery (principal)
CPT/HCPCS: 36415; 82950; 85027; 86850; 86900; 86901; J2790

== ENCOUNTER 2019-12-06 15:51 | Outpatient (CLI) | payer BC, OTHER ==
[~2019-12-06] VITALS: Ht 146.1 cm; Wt 75.0 kg
[~2019-12-06 15:51] MED LIST changes: -FIORCAP3 PO; -PRENTAB9 PO; -ZOFR4TAB16 PO
[2019-12-06 16:10] VITALS: BP 111/56
--- NOTE | 2019-12-06 17:14 | REPVR ---
PROCEDURE INFORMATION: Exam: US Biophysical Profile Without Non-Stress Test Exam date and time: 12/06/2019 4:48 PM Age: 24 years old Clinical indication: Other: Decreased movements; ; Additional info: Decreased movement TECHNIQUE: Imaging protocol: US biophysical profile without non-stress testing. COMPARISON: US OBS FOLLOW UP OR REPEAT 09/11/2019 8:29 AM FINDINGS: heart rate: 137 bpm. Presentation: Cephalic presentation. Placenta: Grade 3 fundal placenta. Amniotic fluid index: SHRUTHI = 11.4 cm. BIOPHYSICAL PROFILE: Breathin/2 Gross body movements: 2/2 tone: 2/2 Qualitative amniotic fluid: 2/2 Biophysical Profile Score: 8/8 DOPPLER: Umbilical artery Doppler: Umbilical artery S/D 2.58 (placental end). MATERNAL ANATOMY: Right adnexa: Right ovary not identified, no right adnexal abnormality. Left adnexa: Left ovary not identified, no left adnexal abnormality. IMPRESSION: Normal biophysical profile score with 8 out of 8 available points. Electronically signed by: Zen Miller On 12/06/2019 17:14:17 PM
--- NOTE | 2019-12-06 17:26 | IPNPDOC ---
Text Note Date of Service The patient was seen on 12/06/19. NOTE Outpatient 24yo PAGE 01/08/2020. Presents @ 35w2d with complaints of decreased movement through the day despite resting, eating and drinking. Denies LOF, bleeding or regular UC. FH 125, minimal variability, slowly increasing to moderate. Rare accels prior to leaving for radiology. No UC BPP today 10/18, SHRUTHI 11.4, cephalic. Umbilical artery doppler s/d 2.58. Pt reassured. Discharged home. Routine precautions. Keep appt next week. Call with concerns VS,Fishbone, I+O VS, Fishbone, I+O Vital Signs Date Time Temp Pulse Resp B/P (MAP) Pulse Ox O2 Delivery O2 Flow Rate FiO2 12/06/19 16:10 97.0 82 18 111/56 (74) Jackie Bravo CNM Dec 06, 2019 17:26
[2019-12-06 17:38] VITALS: BP 118/60
[2019-12-23] MEDS ORDERED: PRENTAB9 PO (07:53)
== END 2019-12-06 17:49 | disposition home or self-care (01) ==
LOC: M LDO 15:51
PROVIDERS: ATTEND Advanced Practice Midwife
DX: O36.8130 Decreased fetal movements, third trimester, not applicable or unspecified (principal); Z3A.35 35 weeks gestation of pregnancy
CPT/HCPCS: 59025; 76815; 76819; 76820; G0378; G0463

== ENCOUNTER → 2019-12-06 | Outpatient (REF) | payer OTHER ==
[~2019-12-06] MED LIST changes: +FIORCAP3 PO; +PRENTAB9 PO; +ZOFR4TAB16 PO
== END ==
LOC: M LAB REF 15:10
PROVIDERS: ATTEND Physician Assistant
DX: J02.9 Acute pharyngitis, unspecified (principal)

== ENCOUNTER → 2019-12-13 | Outpatient (REF) | payer OTHER ==
[~2019-12-13] MED LIST changes: +FIORCAP3 PO; +PRENTAB9 PO; +ZOFR4TAB16 PO
== END ==
LOC: M PLALAB 08:40
PROVIDERS: ATTEND Advanced Practice Midwife
DX: O34.211 Maternal care for low transverse scar from previous cesarean delivery (principal)

== ENCOUNTER 2019-12-17 20:45 | Outpatient (CLI) | payer BC, OTHER ==
[~2019-12-17] VITALS: Ht 146.1 cm; Wt 75.0 kg
[~2019-12-17 20:45] MED LIST changes: -FIORCAP3 PO; -PRENTAB9 PO; -ZOFR4TAB16 PO
[2019-12-17 21:02] VITALS: BP 126/58
[2019-12-23] MEDS ORDERED: PRENTAB9 PO (07:53)
== END 2019-12-17 22:34 | disposition home or self-care (01) ==
LOC: M LDO 20:45
PROVIDERS: ATTEND Obstetrics & Gynecology
DX: O47.03 False labor before 37 completed weeks of gestation, third trimester (principal); Z3A.36 36 weeks gestation of pregnancy
CPT/HCPCS: 59025; G0378; G0463

== ENCOUNTER 2019-12-27 21:34 | Outpatient (CLI) | payer BC, OTHER ==
[~2019-12-27] VITALS: Ht 146.1 cm; Wt 79.7 kg
[~2019-12-27 21:34] MED LIST changes: -FIORCAP3 PO; -ZOFR4TAB16 PO
[2019-12-27 21:48] VITALS: BP 113/63
--- NOTE | 2019-12-27 22:16 | IPNPDOC ---
Text Note Date of Service The patient was seen on 12/27/19. NOTE Beatrice is a 24y/o at 38.3weeks presenting to L&D with c/o contractions that start in her back and wrap forward every 4 minutes and feeling a constant tightness. History is significant for prior section. She is considering TOLAC if she labors prior to her scheduled repeat. She has been cramping throughout the day, increased in frequency after walking around the grocery store this evening. States she has been drinking plenty of water and resting otherwise today. FHR 125bpm, Category 1 tracing, Uterine irritability noted on toco. SVE with informed consent, FT/thick/-3 by ALMA Coffey Plan to monitor and recheck in 1 hour for dilation. VS,Fishbone, I+O VS, Fishbone, I+O Vital Signs Date Time Temp Pulse Resp B/P (MAP) Pulse Ox O2 Delivery O2 Flow Rate FiO2 12/27/19 21:48 98.3 74 16 113/63 (80) Jackie Bravo CNM Dec 27, 2019 22:16
[2019-12-27] MEDS ORDERED: FIORCAP3 PO (23:00)
[2019-12-27 23:10] VITALS: BP 116/63
--- NOTE | 2019-12-28 00:58 | IPNPDOC ---
Text Note Date of Service The patient was seen on 12/28/19. NOTE Outpatient Patient denies any change in contractions, still irregular. States she thinks she could sleep through the contractions she is feeling. Denies LOF, vaginal bleeding. Reports good FM. FHT Category 1, FHR baseline 125 UC irregular with irritability SVE FT/long/high by ALMA Patton Plan to discharge home. Warning signs, access to care, and labor precautions reviewed. Pt instructed to call office on Monday to confirm C/S schedule. VS,Fishbone, I+O VS, Fishbone, I+O Vital Signs Date Time Temp Pulse Resp B/P (MAP) Pulse Ox O2 Delivery O2 Flow Rate FiO2 12/27/19 23:10 74 116/63 (80) 12/27/19 21:48 98.3 16 Jackie Bravo CNM Dec 28, 2019 00:58
== END 2019-12-28 00:37 | disposition home or self-care (01) ==
LOC: M LDO 21:34
PROVIDERS: ATTEND Advanced Practice Midwife
DX: O47.1 False labor at or after 37 completed weeks of gestation (principal); Z3A.38 38 weeks gestation of pregnancy
CPT/HCPCS: 59025; G0378; G0463

== ENCOUNTER → 2019-12-27 | Outpatient (CLI) | payer BC, OTHER ==
[~2019-12-27] MED LIST changes: +FIORCAP3 PO; +PRENTAB9 PO; +ZOFR4TAB16 PO
== END ==
LOC: M LABSMTC 10:16
PROVIDERS: ATTEND Anesthesiology
DX: Z01.812 Encounter for preprocedural laboratory examination (principal); Z20.828 Contact with and (suspected) exposure to other viral communicable diseases
CPT/HCPCS: C9803; U0003

== ENCOUNTER 2019-12-29 19:18 | Outpatient (CLI) | payer BC, OTHER ==
[~2019-12-29] VITALS: Ht 146.1 cm; Wt 76.4 kg
[~2019-12-29 19:18] MED LIST changes: +FIORCAP3 PO
--- NOTE | 2019-12-29 22:50 | IPNPDOC ---
Text Note Date of Service The patient was seen on 12/29/19. NOTE Triage Note Pt presented for "blurry vision like static" that resolved earlier and some lower back pain. I called her and discussed her complaints, recommended hydration and tylenol/warm shower for her discomfort, but she "felt uncomfortable with the recommendation to take tylenol" and decided to present to triage. She had already taken her bp at home and got a normal result, but was still concerned about the possibility of pre-eclampsia despite my counseling. Having good movement, no LOF, no vaginal bleeding. Feels occasional nia morgan. She is scheduled for RLTCS on 12/30. Vitals wnl, normotensive and afebrile Gen: resting comfortably in triage bed Abdomen: soft, gravid NTTP Extremities: no edema of BLE Cat I FHRT with +accels, -decels, mod haseeb Belzoni: irregular ctx. Assessment: Term SIUP, reassuring assessment Plan: -increase hydration -tylenol prn, warm shower for discomfort -reassurance provided again -pt scheduled for RLTCS on 12/30, pt to call Cindy in the office tomorrow to follow up on her appt for Covid testing and confirm date/time of RLTCS -safe for discharge MD Delmis De Los Santos Katrina D MD Dec 29, 2019 22:50
== END 2019-12-29 22:37 | disposition home or self-care (01) ==
LOC: M LDO 19:18
PROVIDERS: ATTEND Obstetrics & Gynecology
DX: O26.893 Other specified pregnancy related conditions, third trimester (principal); Z3A.36 36 weeks gestation of pregnancy
CPT/HCPCS: 59025; G0378; G0463

== ENCOUNTER 2019-12-31 05:29 | Inpatient (IN) | payer BC, OTHER ==
[~2019-12-31] VITALS: Ht 146.1 cm; Wt 76.0 kg
[2019-12-31] VITALS (10 sets, daily range): BP systolic 103–138; BP diastolic 52–79
[2019-12-31] MEDS ORDERED: ZOFR4TAB16 PO (05:42)
[2019-12-31] MEDS ORDERED: LR 800 ML IV ONE (05:45)
[2019-12-31] MEDS ORDERED: LR 1,000 ML IV SCH ×3 (05:45→09:15)
[2019-12-31] MEDS ORDERED: BICITRA 30ML SOLN UDC PO ONE (05:45)
[2019-12-31] MEDS ORDERED: ceFAZolin SOD 2 GM in IV 1 EA IV ONE (05:45)
[2019-12-31 06:19] LABS: HEMATOCRIT 43.3 % (36.0-47.0); HEMOGLOBIN 14.4 g/dl (12.0-15.5); MEAN CORPUSCULAR HEMOGLOBIN 30.4 pg (27.0-33.0); MEAN CORPUSCULAR HGB CONC 33.3 g/dl (32.0-36.5); MEAN CORPUSCULAR VOLUME 91.5 fl (80.0-96.0); PLATELET COUNT, AUTOMATED 197 10^3/uL (150-450); RED BLOOD COUNT 4.73 10^6/uL (4.00-5.40)
[2019-12-31] MEDS ORDERED: ONDANSETRON 4MG/2ML VIAL IV PRN ×3 (07:49→09:15)
[2019-12-31] MEDS ORDERED: METOCLOPRAMIDE INJ 10MG/2ML VIAL (J2765 PER 1) IV PRN (07:49)
[2019-12-31] MEDS ORDERED: NALOXONE INJ 0.4MG/1ML VIAL (J2310 PER 1MG) IV PRN ×2 (07:49)
[2019-12-31] MEDS ORDERED: diphenhydrAMINE 50MG/ML VIAL (J1200) IV PRN (07:49)
[2019-12-31] MEDS ORDERED: NALBUPHINE HCL 10 MG/ML AMP (J2300) IV PRN ×2 (07:49→09:15)
[2019-12-31] MEDS ORDERED: ePHEDrine SULFATE 25 MG/5 ML(5MG/ML) SYRINGE As Ordered ONE (07:56)
[2019-12-31] MEDS ORDERED: OXYTOCIN INJ 10 UNITS/ML VIAL (J2590) As Ordered ONE (07:56)
[2019-12-31] MEDS ORDERED: ONDANSETRON 4MG/2ML VIAL As Ordered ONE (07:56)
[2019-12-31] MEDS ORDERED: MORPHINE PRES-FREE INJ 10 MG/10 ML VIAL (J2274) As Ordered ONE (07:56)
[2019-12-31] MEDS ORDERED: OXYTOCIN DRIP 30 UNITS in IV 1 EA IV SCH (08:40)
[2019-12-31] MEDS ORDERED: MEASLES,MUMPS,RUBELLA VACCINE INJ (MMR-II) (90707) SC SCH (08:45)
[2019-12-31] MEDS ORDERED: RHOGAM 300 MCG (1500 IU) INJ (J2790) IM SCH (08:45)
[2019-12-31] MEDS ORDERED: KETOROLAC 30 MG/ML 1ML VIAL IV SCH ×2 (08:45→10:00)
[2019-12-31] MEDS ORDERED: DOCUSATE SODIUM 100 MG CAP PO PRN (08:45)
[2019-12-31] MEDS ORDERED: PERCOCET 5MG/325MG TAB PO PRN ×2 (08:45)
[2019-12-31] MEDS: PRENATAL VITAMINS CHEWABLE TABLET PO SCH (09:00)
--- NOTE | 2019-12-31 09:00 | ROOPDOC ---
[facility] Report Of Operation Report of Operation DATE OF PROCEDURE: 12/31/19 Report of operation Preoperative diagnosis: 39 0/7 weeks gestation, prior Postoperative diagnosis: same Procedure: Repeat low transverse section Surgeon: Charlie Ornelas M.D. Asst.: Janelle Lyman MD EBL: 600 ml. Urine output: 100 mL's. Findings:7 lb. 9 0z.. female , 's 8 and 9 g normal uterus, fallopian tubes, ovaries. Operative summary: Patient taken to the operating room where spinal anesthesia induced. She is prepped draped sterile fashion in the supine position. A Bolton catheter was placed. A Pfannenstiel skin incision was made with scalpel. Fascia was incised and extended bilaterally. The peritoneal cavity was entered. A Mobius retractor was placed. A bladder flap was created. A curvilinear incision was made in lower uterine segment until Clear fluid was noted. The incision was extended manually. The was delivered from the vertex position without d ifficulty. Cord was double clamped and cut. The infant was handed to the awaiting nurses. . The placenta was expressed. Uterus was closed with O-Vicryl in a running locked fashion. A second imbricating layer of Vicryl was placed. Peritoneum was closed with 2-0 Vicryl a running fashion. Fascia was closed with 0 Vicryl in running fashion. Skin was closed 4-0 Monocryl subcuticular sutures. Sponge, instrument and needle counts were correct. Janelle Lyman MD, assisted with all aspects of the procedure. He helped each layer of the incision and deliver the fetus. CHARLIE ORNELAS MD Dec 31, 2019 09:00
[2019-12-31] MEDS ORDERED: OXYTOCIN 30 UNITS IN 0.9% NaCl 500ML IV BAG (J2590) As Ordered ONE (09:04)
[2019-12-31] MEDS ORDERED: fentaNYL 100 MCG/2 ML INJECTION (J3010) IV PRN (09:15)
[2019-12-31] MEDS ORDERED: propofoL 200 MG/20 ML VIAL As Ordered ONE (10:21)
[2019-12-31] MEDS: KETOROLAC 30 MG/ML 1ML VIAL IV SCH ×3 (10:38→22:17)
[2020-01-01 01:51] VITALS: BP 117/64
[2020-01-01] MEDS: KETOROLAC 30 MG/ML 1ML VIAL IV SCH (04:18)
[2020-01-01 06:08] VITALS: BP 130/61
[2020-01-01 07:06] LABS: HEMATOCRIT 32.2 % (36.0-47.0); MEAN CORPUSCULAR HEMOGLOBIN 30.2 pg (27.0-33.0); MEAN CORPUSCULAR HGB CONC 32.6 g/dl (32.0-36.5); MEAN CORPUSCULAR VOLUME 92.5 fl (80.0-96.0); PLATELET COUNT, AUTOMATED 170 10^3/uL (150-450); RED BLOOD COUNT 3.48 10^6/uL (4.00-5.40); WHITE BLOOD COUNT 10.5 10^3/uL (4.0-10.0)
[2020-01-01 07:31] LABS: HEMOGLOBIN 10.5 g/dl (12.0-15.5)
[2020-01-01] MEDS: SERTRALINE HCL 25 MG TABLET PO SCH (09:39)
[2020-01-01] MEDS: PRENATAL VITAMINS CHEWABLE TABLET PO SCH (09:39)
[2020-01-01 10:00] VITALS: BP 113/58
[2020-01-01] MEDS: IBUPROFEN 800 MG TAB PO SCH ×2 (11:53→19:29)
[2020-01-01 14:00] VITALS: BP 123/66
[2020-01-01 18:00] VITALS: BP 134/68
[2020-01-01 22:00] VITALS: BP 99/57
[2020-01-02 02:00] VITALS: BP 127/64
[2020-01-02] MEDS: IBUPROFEN 800 MG TAB PO SCH ×2 (04:09→12:06)
[2020-01-02 05:00] VITALS: BP 117/64
[2020-01-02] MEDS: SERTRALINE HCL 25 MG TABLET PO SCH (08:21)
[2020-01-02] MEDS: PRENATAL VITAMINS CHEWABLE TABLET PO SCH (08:21)
--- NOTE | 2020-01-02 13:10 | DS ---
DATE OF ADMISSION: 12/31/2019 DATE OF DISCHARGE: 01/02/2020 DISCHARGE DIAGNOSIS: Repeat section at term. Postop day 2, stable condition. SURGEON: Dr. Federico Richter FORESTRY TECHNICIAN: Janelle Lyman. HISTORY: Beatrice underwent a repeat section at 39 weeks. Her surgery was uncomplicated. She delivered a live female infant weighing 7 pounds, 9 ounces, scores were 8 and 9. Estimated blood loss was 600 ml. Her postoperative course has been uncomplicated. She has been out of bed for self- care, ryanne-care and care. She is breast feeding without difficulty, voiding without difficulty and passing flatus. She had her pain managed with by mouth pain medications. She is requesting discharge home today, tolerating by mouth fluids and a regular diet. OBJECTIVE: Temperature 98.4, pulse 70, respirations 18, blood pressure is 117/64. Preoperative complete blood count (CBC) on 12/31/2019: Hemoglobin 14.4, hematocrit 43.3, platelets 197. Postoperative complete blood count (CBC): Hemoglobin 10.5, hematocrit 32.2, platelets 170. Breasts are soft, nontender. Nipples are intact. Fundus firm at 2 below umbilicus. Incision has dressing applied. No new drainage noted. Perineum is intact. Lochia rubra scant. Lower extremities: +1 pitting edema. PLAN: Discharge the patient home today. She is to follow up at [facility], with Dr. Federico Richter for a two week incision check and an 8 week visit. Pain medications have been E-prescribed by Dr. Richter to her pharmacy for ibuprofen and Percocet. I did review discharge instructions that include breast care, incision care, ryanne-care, pelvic rest, activity and lifting restrictions, danger signs to report and access to care. All of the patient's questions have been answered and she desires discharge. DAVID
== END 2020-01-02 15:00 | disposition home or self-care (01) | DRG 540 ==
LOC: M LDI 05:29 → M OBS 09:51
PROVIDERS: ADMIT Specialist; ATTEND Specialist
PROC: 10D00Z1 Extraction of Products of Conception, Low, Open Approach (ICD-10-PCS; principal; 2019-12-31 07:30)
DX: O34.211 Maternal care for low transverse scar from previous cesarean delivery (principal); Z3A.39 39 weeks gestation of pregnancy; Z37.0 Single live birth

== ENCOUNTER → 2020-03-23 | Outpatient (CLI) | payer BC, OTHER ==
[~2020-03-23] MED LIST changes: +ZOFR4TAB16 PO
[2020-03-23 11:52] LABS: BASO % 0.5 % (0.0-1.0); EOS # 0.1 10^3/uL (0.0-0.5); HEMATOCRIT 43.9 % (36.0-47.0); HEMOGLOBIN 14.1 g/dl (12.0-15.5); LYMPH # 2.4 10^3/uL (1.5-5.0); LYMPH % 39.9 % (24.0-44.0); MEAN CORPUSCULAR HEMOGLOBIN 30.1 pg (27.0-33.0); MEAN CORPUSCULAR HGB CONC 32.1 g/dl (32.0-36.5); MEAN CORPUSCULAR VOLUME 93.8 fl (80.0-96.0); MONO # 0.4 10^3/uL (0.0-0.8); MONO % 7.2 % (0.0-5.0); NEUTROPHILS % 50.1 % (36.0-66.0); PLATELET COUNT, AUTOMATED 284 10^3/uL (150-450); RED BLOOD COUNT 4.68 10^6/uL (4.00-5.40)
[2020-03-23 12:28] LABS: ALBUMIN 3.9 GM/DL (3.2-5.2); ALT/SGPT 59 U/L (12-78); BILIRUBIN,TOTAL 0.2 MG/DL (0.2-1.0); BLOOD UREA NITROGEN 14 MG/DL (7-18); CALCIUM LEVEL 8.8 MG/DL (8.5-10.1); CARBON DIOXIDE LEVEL 27 MEQ/L (21-32); CHLORIDE LEVEL 106 MEQ/L (98-107); CREATININE FOR GFR 0.64 MG/DL (0.55-1.30); FREE T4 0.87 NG/DL (0.76-1.46); GLOMERULAR FILTRATION RATE > 60.0 (>60); GLUCOSE, FASTING 85 MG/DL (70-100); POTASSIUM SERUM 4.6 MEQ/L (3.5-5.1); SODIUM LEVEL 139 MEQ/L (136-145)
[2020-03-23 13:25] LABS: TOTAL 25(OH) VITAMIN D 35.9 NG/ML (30.0-100.0)
[2020-03-23 15:13] LABS: HEMOGLOBIN A1c 4.9 %
== END ==
LOC: M PLALAB 08:41
PROVIDERS: ATTEND Physician Assistant
DX: R42 Dizziness and giddiness (principal)

== ENCOUNTER → 2020-06-05 | Outpatient (CLI) | payer BC, OTHER ==
--- NOTE | 2020-06-05 11:02 | REP ---
INDICATION: UPPER ABD PAIN. COMPARISON: None. TECHNIQUE: Umbilical and periumbilical abdominal wall sonography. FINDINGS: Umbilical and Cori umbilical abdominal sonography demonstrate a 0.8 cm defect in the anterior abdominal wall at the level of the umbilicus with a small quantity of free protruding abdominal fat. This did not reduce. No bowel involvement or fluid collection seen. Study is otherwise unremarkable. IMPRESSION: Findings consistent with small umbilical hernia transmitting abdominal fat. <Electronically signed by Ravinder Guerin > 06/05/20 0432
== END ==
LOC: M RAD 08:24
PROVIDERS: ATTEND Physician Assistant
DX: R10.10 Upper abdominal pain, unspecified (principal); K44.9 Diaphragmatic hernia without obstruction or gangrene

== ENCOUNTER 2020-09-18 14:07 | Emergency (ER) | payer BC, OTHER ==
[~2020-09-18] VITALS: Ht 144.8 cm; Wt 73.2 kg
[2020-09-18] MEDS ORDERED: KETOROLAC 30 MG/ML 1ML VIAL IV ONE (17:35)
[2020-09-18 18:27] LABS: BASO % 0.3 % (0.0-1.0); EOS # 0.1 10^3/uL (0.0-0.5); HEMATOCRIT 41.5 % (36.0-47.0); HEMOGLOBIN 13.6 g/dl (12.0-15.5); LYMPH # 2.7 10^3/uL (1.5-5.0); LYMPH % 24.8 % (24.0-44.0); MEAN CORPUSCULAR HEMOGLOBIN 29.9 pg (27.0-33.0); MEAN CORPUSCULAR HGB CONC 32.8 g/dl (32.0-36.5); MEAN CORPUSCULAR VOLUME 91.2 fl (80.0-96.0); MONO # 0.8 10^3/uL (0.0-0.8); MONO % 7.9 % (2.0-8.0); NEUTROPHILS % 65.7 % (36.0-66.0); PLATELET COUNT, AUTOMATED 239 10^3/uL (150-450); RED BLOOD COUNT 4.55 10^6/uL (4.00-5.40); WHITE BLOOD COUNT 10.7 10^3/uL (4.0-10.0)
[2020-09-18 19:06] LABS: ALT/SGPT 25 U/L (12-78); BILIRUBIN,DIRECT < 0.1 MG/DL (0.0-0.2); BILIRUBIN,TOTAL 0.2 MG/DL (0.2-1.0); LIPASE 120 U/L (73-393); TOTAL PROTEIN 7.6 GM/DL (6.4-8.2)
[2020-09-18] MEDS ORDERED: ONDA4TAB6 PO (20:41)
[2020-09-18] MEDS ORDERED: PERC5TAB12 PO (20:41)
[2020-09-18 20:51] VITALS: BP 121/68
== END 2020-09-18 20:53 | disposition home or self-care (01) ==
LOC: M ED 14:07
DX: T83.32XA Displacement of intrauterine contraceptive device, initial encounter (principal); J45.909 Unspecified asthma, uncomplicated; Z79.899 Other long term (current) drug therapy; Z88.5 Allergy status to narcotic agent
CPT/HCPCS: 36415; 58301; 76830; 76856; 80047; 80076; 81001; 83690; 84702; 85025; 93976; 96374; 99284; J1885

== ENCOUNTER → 2020-12-15 | Outpatient (REF) | payer BC, OTHER ==
[~2020-12-15] MED LIST changes: +ONDA4TAB6 PO; +PERC5TAB12 PO
== END ==
LOC: M LAB REF 20:42
PROVIDERS: ATTEND Physician Assistant
DX: J06.9 Acute upper respiratory infection, unspecified (principal)

== ENCOUNTER → 2021-04-20 | Outpatient (CLI) | payer BC, OTHER | LOC: M RAD 12:45 | PROVIDERS: ATTEND Physician Assistant | DX: M79.675 Pain in left toe(s) (principal) ==

== ENCOUNTER 2021-08-18 19:08 | Emergency (ER) | payer BC, OTHER ==
[~2021-08-18] VITALS: Ht 144.8 cm; Wt 50.0 kg
[2021-08-18 22:40] LABS: HEMATOCRIT 38.9 % (36.0-47.0); HEMOGLOBIN 12.4 g/dl (12.0-15.5); MEAN CORPUSCULAR HEMOGLOBIN 26.2 pg (27.0-33.0); MEAN CORPUSCULAR HGB CONC 31.9 g/dl (32.0-36.5); MEAN CORPUSCULAR VOLUME 82.1 fl (80.0-96.0); PLATELET COUNT, AUTOMATED 364 10^3/uL (150-450); RED BLOOD COUNT 4.74 10^6/uL (4.00-5.40)
[2021-08-18 23:06] LABS: ALBUMIN 3.8 GM/DL (3.2-5.2); ALT/SGPT 25 U/L (12-78); BILIRUBIN,TOTAL 0.2 MG/DL (0.2-1.0); BLOOD UREA NITROGEN 21 MG/DL (7-18); CALCIUM LEVEL 9.4 MG/DL (8.5-10.1); CARBON DIOXIDE LEVEL 24 MEQ/L (21-32); CHLORIDE LEVEL 109 MEQ/L (98-107); CREATININE FOR GFR 0.72 MG/DL (0.55-1.30); GLOMERULAR FILTRATION RATE > 60.0 (>60); GLUCOSE, FASTING 86 MG/DL (70-100); POTASSIUM SERUM 4.1 MEQ/L (3.5-5.1); SODIUM LEVEL 141 MEQ/L (136-145); TOTAL PROTEIN 7.6 GM/DL (6.4-8.2)
[2021-08-19 03:09] LABS: GC DNA AMPLIFICATION NEGATIVE (NEGATIVE)
[2021-08-19] MEDS ORDERED: DOXYCYCLINE HYCLATE 100MG TABLET PO ONE (07:20)
[2021-08-19 07:31] LABS: PERCENT SATURATION 5.3 % (13.2-45.0)
[2021-08-19] MEDS ORDERED: DOXY-443 PO (07:45)
[2021-08-19] MEDS ORDERED: FERR324T21 PO (07:45)
[2021-08-19 07:59] VITALS: BP 104/60
[2021-08-19 09:38] LABS: FOLATE 10.4 NG/ML (>5.4)
== END 2021-08-19 08:00 | disposition home or self-care (01) ==
LOC: M ED 19:08
DX: D50.9 Iron deficiency anemia, unspecified (principal); A74.9 Chlamydial infection, unspecified; F07.81 Postconcussional syndrome; J45.909 Unspecified asthma, uncomplicated; R51.9 Headache, unspecified; M54.9 Dorsalgia, unspecified; F41.9 Anxiety disorder, unspecified; Z88.6 Allergy status to analgesic agent

== ENCOUNTER → 2021-08-31 | Outpatient (CLI) | payer MEDICAID ==
[~2021-08-31] MED LIST changes: +DOXY-443 PO; +FERR324T21 PO
[2021-08-31 17:10] LABS: GC DNA AMPLIFICATION NEGATIVE (NEGATIVE)
== END ==
LOC: M PLALAB 13:35
PROVIDERS: ATTEND Advanced Practice Midwife
DX: Z20.2 Contact with and (suspected) exposure to infections with a predominantly sexual mode of transmission (principal)

== ENCOUNTER → 2021-09-15 | Outpatient (REF) | payer OTHER ==
[2021-09-15 19:22] LABS: GC DNA AMPLIFICATION NEGATIVE (NEGATIVE)
== END ==
LOC: M LAB REF 16:57
PROVIDERS: ATTEND Nurse Practitioner Adult Health
DX: R39.198 Other difficulties with micturition (principal)

== ENCOUNTER → 2021-09-29 | Outpatient (CLI) | payer OTHER | LOC: M RAD 15:30 | PROVIDERS: ATTEND Nurse Practitioner Adult Health | DX: R39.198 Other difficulties with micturition (principal) ==

== ENCOUNTER → 2022-02-16 | Outpatient (CLI) | payer MEDICAID, OTHER | LOC: M RAD 16:09 | PROVIDERS: ATTEND Family Medicine | DX: R10.33 Periumbilical pain (principal) ==

== ENCOUNTER → 2022-02-23 | Outpatient (CLI) | payer OTHER | LOC: M RAD 13:25 | PROVIDERS: ATTEND Family Medicine | DX: R10.2 Pelvic and perineal pain (principal) ==

== ENCOUNTER → 2022-04-28 | Outpatient (CLI) | payer OTHER ==
[2022-04-28 18:48] LABS: CPK CREATINE PHOSPHOKINASE 189 U/L (34-145); IRON (FE) 47 UG/DL (50-170); PERCENT SATURATION 12.1 % (13.2-45.0); TOTAL IRON BINDING CAPACITY 387 UG/DL (250-425)
[2022-04-28 18:52] LABS: BASO % 0.5 % (0.0-1.0); EOS # 0.1 10^3/uL (0.0-0.5); EOS % 1.5 % (0.0-3.0); HEMATOCRIT 41.2 % (36.0-47.0); HEMOGLOBIN 13.2 g/dl (12.0-15.5); LYMPH # 2.7 10^3/uL (1.5-5.0); LYMPH % 32.7 % (24.0-44.0); MEAN CORPUSCULAR HEMOGLOBIN 27.7 pg (27.0-33.0); MEAN CORPUSCULAR VOLUME 86.6 fl (80.0-96.0); MONO # 0.5 10^3/uL (0.0-0.8); MONO % 5.9 % (2.0-8.0); NEUTROPHILS # 4.8 10^3/uL (1.5-8.5); PLATELET COUNT, AUTOMATED 379 10^3/uL (150-450); RED BLOOD COUNT 4.76 10^6/uL (4.00-5.40); WHITE BLOOD COUNT 8.1 10^3/uL (4.0-10.0)
[2022-04-28 19:08] LABS: ALBUMIN 3.7 G/DL (3.2-5.2); ALKALINE PHOSPHATASE 58 U/L (46-116); ALT/SGPT 24 U/L (7.0-40); AST/SGOT 26 U/L (<34); BILIRUBIN,TOTAL 0.3 MG/DL (0.3-1.2); BLOOD UREA NITROGEN 16 MG/DL (9-23); CALCIUM LEVEL 9.2 MG/DL (8.5-10.1); CARBON DIOXIDE LEVEL 27 MMOL/L (20-31); CHLORIDE LEVEL 105 MMOL/L (98-107); CK-MB VALUE MASS 1.7 NG/ML (<3.6); CREATININE FOR GFR 0.62 MG/DL (0.55-1.30); FERRITIN 12.5 NG/ML (7.3-270.7); FOLATE 12.5 NG/ML (>5.4); FREE T4 0.96 NG/DL (0.89-1.76); GLOMERULAR FILTRATION RATE > 60.0 (>60); GLUCOSE, FASTING 92 MG/DL (60-100); MAGNESIUM LEVEL 1.9 MG/DL (1.8-2.4); MB/CK RELATIVE INDEX 0.89 (< OR =4); POTASSIUM SERUM 4.1 MMOL/L (3.5-5.1); SODIUM LEVEL 139 MMOL/L (136-145); THYROID STIMULATING HORMONE 0.705 uIU/ML (0.55-4.78); TOTAL 25(OH) VITAMIN D 32.1 NG/ML (20.0-100.0); TOTAL PROTEIN 7.1 G/DL (5.7-8.2); VITAMIN B12 LEVEL 561 PG/ML (211-911)
== END ==
LOC: M PLALAB 15:32
PROVIDERS: ATTEND Physician Assistant
DX: R42 Dizziness and giddiness (principal)

== ENCOUNTER → 2022-05-11 | Outpatient (REF) | payer OTHER | LOC: M LAB REF 16:57 | PROVIDERS: ATTEND Physician Assistant | DX: N76.0 Acute vaginitis (principal) ==

== ENCOUNTER → 2022-09-27 | Outpatient (REF) | payer OTHER | LOC: M LAB REF 09:08 | PROVIDERS: ATTEND Physician Assistant | DX: L82.1 Other seborrheic keratosis (principal) ==

== ENCOUNTER → 2022-10-11 | Outpatient (REF) | payer OTHER | LOC: M LAB REF 16:54 | PROVIDERS: ATTEND Physician Assistant | DX: N76.0 Acute vaginitis (principal) ==

== ENCOUNTER 2022-12-28 21:58 | Emergency (ER) | payer OTHER ==
[~2022-12-28] VITALS: Ht 144.8 cm; Wt 51.8 kg
[~2022-12-28 21:58] MED LIST changes: -FLUT50SP17; -MONT10TA97
[2022-12-28] MEDS ORDERED: FLUT50SP17 (22:03)
[2022-12-28] MEDS ORDERED: MONT10TA97 (22:03)
[2022-12-28 23:47] VITALS: TEMP 98
[2022-12-29 03:00] VITALS: BP 122/70
[2022-12-29 04:15] VITALS: O2SAT 99
[2022-12-29 04:16] LABS: CK-MB VALUE MASS 1.5 NG/ML (<3.6)
[2022-12-29 04:18] LABS: MB/CK RELATIVE INDEX 0.55 (< OR =4)
== END 2022-12-29 04:49 | disposition home or self-care (01) ==
LOC: M ED 21:58
DX: M54.6 Pain in thoracic spine (principal); Z88.5 Allergy status to narcotic agent

== ENCOUNTER → 2022-12-28 | Outpatient (CLI) | payer OTHER ==
[~2022-12-28] MED LIST changes: +FLUT50SP17; +MONT10TA97
[2022-12-28 15:41] LABS: BASO % 0.5 % (0.0-1.0); EOS # 0.1 10^3/uL (0.0-0.5); HEMATOCRIT 39.4 % (36.0-47.0); HEMOGLOBIN 12.6 g/dl (12.0-15.5); LYMPH # 2.1 10^3/uL (1.5-5.0); LYMPH % 25.3 % (24.0-44.0); MEAN CORPUSCULAR HEMOGLOBIN 28.7 pg (27.0-33.0); MEAN CORPUSCULAR VOLUME 89.7 fl (80.0-96.0); MONO # 0.6 10^3/uL (0.0-0.8); MONO % 7.1 % (2.0-8.0); NEUTROPHILS # 5.4 10^3/uL (1.5-8.5); NEUTROPHILS % 65.7 % (36.0-66.0); PLATELET COUNT, AUTOMATED 279 10^3/uL (150-450); RED BLOOD COUNT 4.39 10^6/uL (4.00-5.40); WHITE BLOOD COUNT 8.2 10^3/uL (4.0-10.0)
[2022-12-28 16:10] LABS: ALBUMIN 3.9 G/DL (3.2-5.2); ALKALINE PHOSPHATASE 50 U/L (46-116); ALT/SGPT 23 U/L (7.0-40); AST/SGOT 27 U/L (<34); BILIRUBIN,TOTAL 0.3 MG/DL (0.3-1.2); BLOOD UREA NITROGEN 16 MG/DL (9-23); CALCIUM LEVEL 9.1 MG/DL (8.5-10.1); CARBON DIOXIDE LEVEL 27 MMOL/L (20-31); CHLORIDE LEVEL 105 MMOL/L (98-107); CHOLESTEROL LEVEL 143 MG/DL (<200); CREATININE FOR GFR 0.64 MG/DL (0.55-1.30); FREE T4 1.01 NG/DL (0.89-1.76); GLOMERULAR FILTRATION RATE > 60.0 (>60); GLUCOSE, FASTING 67 MG/DL (60-100); HDL CHOLESTEROL 50.9 MG/DL (>40); LDL CHOLESTEROL 79.5 MG/DL (<100); NON-HDL-C 92.1 MG/DL; POTASSIUM SERUM 4.4 MMOL/L (3.5-5.1); SODIUM LEVEL 139 MMOL/L (136-145); THYROID STIMULATING HORMONE 0.841 uIU/ML (0.55-4.78); TOTAL PROTEIN 6.8 G/DL (5.7-8.2); TRIGLYCERIDES LEVEL 63 MG/DL (<150)
== END ==
LOC: M PLALAB 12:33
PROVIDERS: ATTEND Family Medicine
DX: Z13.29 Encounter for screening for other suspected endocrine disorder (principal)

== ENCOUNTER → 2023-01-20 | Outpatient (REF) | payer OTHER ==
[~2023-01-20] MED LIST changes: +FLUT50SP17; +MONT10TA97
== END ==
LOC: M LAB REF 13:18
PROVIDERS: ATTEND Family Medicine
DX: N76.0 Acute vaginitis (principal)

== ENCOUNTER → 2023-02-06 | Outpatient (REF) | payer OTHER | LOC: M LAB REF 17:21 | PROVIDERS: ATTEND Nurse Practitioner Adult Health | DX: N76.0 Acute vaginitis (principal) ==

== ENCOUNTER → 2023-02-14 | Outpatient (REF) | payer OTHER ==
[~2023-02-14] MED LIST changes: -FLUT50SP17; +FLUTISP
[2023-02-14 20:08] LABS: CHLAMYDIA DNA AMPLIFICATION NEGATIVE (NEGATIVE); GC DNA AMPLIFICATION NEGATIVE (NEGATIVE)
== END ==
LOC: M LAB REF 16:46
PROVIDERS: ATTEND Nurse Practitioner Adult Health
DX: N89.8 Other specified noninflammatory disorders of vagina (principal)

== ENCOUNTER → 2023-04-25 | Outpatient (CLI) | payer OTHER | LOC: M WHC 14:59 | PROVIDERS: ATTEND Nurse Practitioner Family | DX: N93.9 Abnormal uterine and vaginal bleeding, unspecified (principal) ==

== ENCOUNTER → 2023-07-04 | Outpatient (CLI) | payer OTHER ==
[2023-07-04 15:36] LABS: BASO % 0.5 % (0.0-1.0); EOS # 0.1 10^3/uL (0.0-0.5); EOS % 1.4 % (0.0-3.0); HEMATOCRIT 40.5 % (36.0-47.0); HEMOGLOBIN 13.4 g/dl (12.0-15.5); LYMPH # 2.8 10^3/uL (1.5-5.0); LYMPH % 31.2 % (24.0-44.0); MEAN CORPUSCULAR HEMOGLOBIN 30.6 pg (27.0-33.0); MEAN CORPUSCULAR HGB CONC 33.1 g/dl (32.0-36.5); MEAN CORPUSCULAR VOLUME 92.5 fl (80.0-96.0); MONO # 0.6 10^3/uL (0.0-0.8); MONO % 6.2 % (2.0-8.0); NEUTROPHILS # 5.4 10^3/uL (1.5-8.5); NEUTROPHILS % 60.5 % (36.0-66.0); PLATELET COUNT, AUTOMATED 300 10^3/uL (150-450); RED BLOOD COUNT 4.38 10^6/uL (4.00-5.40); WHITE BLOOD COUNT 8.9 10^3/uL (4.0-10.0)
[2023-07-04 16:09] LABS: ALBUMIN 3.9 G/DL (3.2-5.2); ALKALINE PHOSPHATASE 52 U/L (46-116); ALT/SGPT 21 U/L (7.0-40); AST/SGOT 25 U/L (<34); BILIRUBIN,TOTAL 0.4 MG/DL (0.3-1.2); BLOOD UREA NITROGEN 26 MG/DL (9-23); CALCIUM LEVEL 9.3 MG/DL (8.5-10.1); CARBON DIOXIDE LEVEL 28 MMOL/L (20-31); CHLORIDE LEVEL 104 MMOL/L (98-107); CREATININE FOR GFR 0.65 MG/DL (0.55-1.30); GLOMERULAR FILTRATION RATE > 60.0 (>60); GLUCOSE, FASTING 71 MG/DL (60-100); IRON (FE) 76 UG/DL (50-170); PERCENT SATURATION 19.4 % (13.2-45.0); POTASSIUM SERUM 4.4 MMOL/L (3.5-5.1); SODIUM LEVEL 138 MMOL/L (136-145); TOTAL IRON BINDING CAPACITY 391 UG/DL (250-425); TOTAL PROTEIN 6.8 G/DL (5.7-8.2)
[2023-07-04 16:10] LABS: FOLATE 14.88 NG/ML (>5.4); VITAMIN B12 LEVEL 1043 PG/ML (211-911)
== END ==
LOC: M PLALAB 14:23
PROVIDERS: ATTEND Physician Assistant
DX: D64.9 Anemia, unspecified (principal)

== ENCOUNTER → 2023-09-20 | Outpatient (REF) | payer OTHER ==
[~2023-09-20] MED LIST changes: +DOXY-323 PO; -DOXY-443 PO; +ONDA-282 PO; -ONDA4TAB6 PO
[2023-09-20 22:35] LABS: GC DNA AMPLIFICATION NEGATIVE (NEGATIVE)
== END ==
LOC: M LAB REF 17:00
PROVIDERS: ATTEND Physician Assistant
DX: J02.9 Acute pharyngitis, unspecified (principal)

== ENCOUNTER → 2023-10-17 | Outpatient (REF) | payer OTHER ==
[2023-10-17 15:17] LABS: Trichomonas vaginalis (AMP) NOT DETECTED (NEGATIVE)
[2023-10-17 15:40] LABS: GC DNA AMPLIFICATION NEGATIVE (NEGATIVE)
[2023-10-19 13:57] LABS: HPV APTIMA Not Detected (Not Detected)
== END ==
LOC: M SFHCWAGY 12:31
PROVIDERS: ATTEND Nurse Practitioner Family
DX: Z12.4 Encounter for screening for malignant neoplasm of cervix (principal)

== ENCOUNTER → 2023-12-01 | Outpatient (CLI) | payer OTHER | LOC: M PLALAB 13:41 | PROVIDERS: ATTEND Family Medicine | DX: E83.10 Disorder of iron metabolism, unspecified (principal) ==

== ENCOUNTER → 2024-02-23 | Outpatient (CLI) | payer OTHER ==
[~2024-02-23] MED LIST changes: -DOXY-323 PO; +DOXY-441 PO; +LEVA15HF2 INH; -LEVAINH INH
== END ==
LOC: M RAD 11:09
PROVIDERS: ATTEND Family Medicine
DX: S23.41XA Sprain of ribs, initial encounter (principal); Y93.9 Activity, unspecified; Y92.9 Unspecified place or not applicable

== ENCOUNTER → 2024-03-08 | Outpatient (CLI) | payer OTHER ==
[2024-03-08 16:00] LABS: FERRITIN 9.3 NG/ML (7.3-270.7)
== END ==
LOC: M PLALAB 12:02
PROVIDERS: ATTEND Family Medicine
DX: E83.10 Disorder of iron metabolism, unspecified (principal)

== ENCOUNTER → 2024-03-29 | Outpatient (REF) | payer OTHER | LOC: M LAB REF 14:45 | PROVIDERS: ATTEND Physician Assistant | DX: N76.0 Acute vaginitis (principal) ==

== ENCOUNTER → 2024-09-21 | Outpatient (REF) | payer OTHER ==
[2024-09-21 17:36] LABS: APPEARANCE, URINE HAZY (CLEAR); BACTERIA, URINE AUTO 1+ (NEGATIVE); BILIRUBIN, URINE AUTO NEGATIVE (NEGATIVE); BLOOD, URINE BLOOD NEGATIVE (NEGATIVE); GLUCOSE, URINE (UA) AUTO NEGATIVE (NEGATIVE); KETONE, URINE AUTO NEGATIVE (NEGATIVE); LEUKOCYTE ESTERASE, URINE AUTO 1+ (NEGATIVE); NITRITE, URINE AUTO NEGATIVE (NEGATIVE); PROTEIN, URINE AUTO NEGATIVE (NEGATIVE); RBC, URINE AUTO 3 /HPF (0-3); SPECIFIC GRAVITY URINE AUTO 1.018 (1.002-1.035); SQUAMOUS EPITHELIAL CELL UR AU 9 /HPF (0-6); UROBILINOGEN, URINE AUTO 0.2 mg/dL (0.0-2.0); WBC, URINE AUTO 4 /HPF (0-3)
== END ==
LOC: M LAB REF 16:56
PROVIDERS: ATTEND Physician Assistant Medical
DX: N39.0 Urinary tract infection, site not specified (principal)

== ENCOUNTER → 2024-09-24 | Outpatient (REF) | payer OTHER ==
[2024-09-24 19:23] LABS: GC DNA AMPLIFICATION NEGATIVE (NEGATIVE)
== END ==
LOC: M LAB REF 16:51
PROVIDERS: ATTEND Family Medicine
DX: N76.0 Acute vaginitis (principal)

== ENCOUNTER → 2024-10-02 | Outpatient (REF) | payer OTHER | LOC: M LAB REF 17:03 | PROVIDERS: ATTEND Family Medicine | DX: N76.0 Acute vaginitis (principal) ==

== ENCOUNTER → 2024-10-31 | Outpatient (CLI) | payer OTHER | LOC: M WHC 07:51 | PROVIDERS: ATTEND Family Medicine | DX: R92.333 Mammographic heterogeneous density, bilateral breasts (principal) ==

== ENCOUNTER → 2024-11-08 | Outpatient (CLI) | payer OTHER ==
[~2024-11-08] MED LIST changes: +ISOVUE-370 76% 100 ML VIAL As Ordered ONE
== END ==
LOC: M RAD 17:12
PROVIDERS: ATTEND Family Medicine
DX: R10.30 Lower abdominal pain, unspecified (principal); N83.291 Other ovarian cyst, right side
CPT/HCPCS: 74177; Q9967

== ENCOUNTER → 2024-11-20 | Outpatient (CLI) | payer OTHER ==
[~2024-11-20] MED LIST changes: -ISOVUE-370 76% 100 ML VIAL As Ordered ONE
== END ==
LOC: M PLALAB 08:52
PROVIDERS: ATTEND Family Medicine
DX: Z11.1 Encounter for screening for respiratory tuberculosis (principal)

== ENCOUNTER → 2024-11-20 | Outpatient (CLI) | payer OTHER ==
[2024-11-20 11:11] LABS: BASO # 0.0 10^3/uL (0.0-0.2); BASO % 0.4 % (0.0-1.0); EOS # 0.1 10^3/uL (0.0-0.5); EOS % 2.3 % (0.0-3.0); LYMPH # 1.7 10^3/uL (1.5-5.0); LYMPH % 31.0 % (24.0-44.0); MONO # 0.4 10^3/uL (0.0-0.8); MONO % 6.8 % (2.0-8.0); NEUTROPHILS # 3.2 10^3/uL (1.5-8.5); NEUTROPHILS % 59.1 % (36.0-66.0); PLATELET COUNT, AUTOMATED 280 10^3/uL (150-450)
[2024-11-20 11:21] LABS: ESTIMATED AVERAGE GLUCOSE 97.0 MG/DL (60-110)
[2024-11-20 11:43] LABS: FREE T4 1.31 NG/DL (0.89-1.76)
[2024-11-20 11:45] LABS: LUTEINIZING HORMONE 7.8 mIU/ML; PROLACTIN 7.45 NG/ML
[2024-11-20 11:47] LABS: ESTRADIOL 62.3 PG/ML
[2024-11-20 11:49] LABS: PROGESTERONE 0.48 NG/ML
[2024-11-20 12:58] LABS: Trichomonas vaginalis (AMP) NOT DETECTED (NEGATIVE)
[2024-11-20 13:22] LABS: GC DNA AMPLIFICATION NEGATIVE (NEGATIVE)
== END ==
LOC: M PLALAB 08:49
PROVIDERS: ATTEND Nurse Practitioner Family
DX: R10.2 Pelvic and perineal pain (principal); N92.0 Excessive and frequent menstruation with regular cycle

== ENCOUNTER → 2024-12-12 | Outpatient (CLI) | payer OTHER | LOC: M WHC 08:58 | PROVIDERS: ATTEND Family Medicine | DX: N83.202 Unspecified ovarian cyst, left side (principal) ==

== ENCOUNTER → 2025-01-15 | Outpatient (POV) | payer OTHER ==
[~2025-01-15] VITALS: Ht 144.8 cm; Wt 55.3 kg
[~2025-01-15] MED LIST changes: +CARDIAC STRESS TEST RESCUE BOX 1 KIT EA XX ONE
[2025-01-15 08:20] VITALS: BP 120/74; O2SAT 99
[2025-01-15 10:03] LABS: APPEARANCE, URINE HAZY (CLEAR); BACTERIA, URINE AUTO 1+ (NEGATIVE); BILIRUBIN, URINE AUTO NEGATIVE (NEGATIVE); BLOOD, URINE BLOOD NEGATIVE (NEGATIVE); GLUCOSE, URINE (UA) AUTO NEGATIVE (NEGATIVE); KETONE, URINE AUTO NEGATIVE (NEGATIVE); LEUKOCYTE ESTERASE, URINE AUTO NEGATIVE (NEGATIVE); NITRITE, URINE AUTO NEGATIVE (NEGATIVE); PROTEIN, URINE AUTO NEGATIVE (NEGATIVE); RBC, URINE AUTO 0 /HPF (0-3); SPECIFIC GRAVITY URINE AUTO 1.006 (1.002-1.035); SQUAMOUS EPITHELIAL CELL UR AU 6 /HPF (0-6); UROBILINOGEN, URINE AUTO 0.2 mg/dL (0.0-2.0); WBC, URINE AUTO 0 /HPF (0-3)
== END ==
LOC: M IRPOV 08:03
PROVIDERS: ATTEND Radiology Diagnostic Radiology
DX: R10.20 Pelvic and perineal pain unspecified side (principal); I87.8 Other specified disorders of veins; Z88.5 Allergy status to narcotic agent; Z79.899 Other long term (current) drug therapy
CPT/HCPCS: 81001; G0463

== ENCOUNTER → 2025-01-16 | Outpatient (REF) | payer OTHER ==
[~2025-01-16] MED LIST changes: -CARDIAC STRESS TEST RESCUE BOX 1 KIT EA XX ONE
== END ==
LOC: M LAB REF 16:53
PROVIDERS: ATTEND Nurse Practitioner Adult Health
DX: N89.8 Other specified noninflammatory disorders of vagina (principal)